=== PATIENT | male | born 1990 | race Caucasian/White ===

== ENCOUNTER 2018-08-29 20:25 | Emergency (ER) | payer SELFPAY ==
[2018-08-29 20:26] VITALS: BP 150/78; PULSE 93; RESP 16; TEMP 37; O2SAT 98; BMI 29.2
--- NOTE | 2018-08-29 20:39 | CT_ITS ---
STUDY: CT BRAIN WITHOUT CONTRAST REASON FOR EXAM: Male, 28 years old. Status post fall. Yellow fluid leaking out of the nose RADIATION DOSAGE (If Supplied By Facility): CTDIvol = ( 60.81 ) mGy, DLP = ( 1112.69 ) mGycm TECHNIQUE: Transaxial CT imaging of the brain was performed without administration of intravenous contrast material. Individualized dose optimization techniques were used for this CT. COMPARISON: No relevant priors. FINDINGS: Normal soft tissue structures. Normal calvarium. Normal size ventricles and extra-axial spaces for the patient's age. Normal white matter tracts of the cerebral hemispheres. Normal basal ganglia and thalami. Normal brainstem. Normal cerebellum. There is no intracranial hemorrhage. There are no findings of an acute ischemic infarction. Small posterior fossa arachnoid cyst Normal visualized paranasal sinuses. No definite evidence of skull base fracture. CT/Brain/Head without Contrast IMPRESSION: Normal unenhanced CT scan of the brain. No definite evidence of skull base fracture. Electronically Signed: Angus Childress DO at 21:13 EDT Tel , Service support ,
--- NOTE | 2018-08-29 22:21 | ED.VISSUMM ---
- ER Visit Summary Date of Service: 08/29/18 Chief Complaint: Head injury History of Present Illness: The patient is a 28 M who presents 2 days after head injury. He slipped in the shower and hit his forehead. He had some swelling to the area but it seems to have improved. This morning, he had some yellowish clear drainage from his left nostril. Otherwise he is doing well. No headaches. No fevers. No visual changes. No hearing changes. No other associated symptoms. He does not take blood thinners. Physical Examination: Afebrile and vital signs are unremarkable. Head and neck are grossly atraumatic. HEENT exam is unremarkable. No sign of drainage, bleeding, abscess. Skin appears normal. Test Results: CT brain unremarkable. No basal skull fracture. No bleeding. No infection noted. Emergency Department Course and Treatment: Patient presents after a mechanical slip and head injury. He had some yellowish clear fluid drained from his left nostril. His imaging was unremarkable. I think it is very unlikely that this is CSF fluid. His exam is otherwise unremarkable. He was referred to ENT for evaluation. Return right away if he has any new issues, increasing pain, fevers, confusion, or neurologic symptoms. Treatment Plan: As above Disposition: Discharge Impression: 1. Closed head injury This note was generated with [employer] dictation software. It may contain incorrect words, spelling, and punctuation that were not noted in review of the chart prior to signing ED Disposition - Plan for ED Patient: Disposition: Home or Assisted Living Instructions: ED Concussion Referrals: Delvis Velasquez MD [STAFF PHYSICIAN] -
--- NOTE | 2018-08-29 22:22 | ED.DEP ---
ED Disposition - Plan for ED Patient: Instructions: ED Concussion Referrals: Delvis Velasquez MD [STAFF PHYSICIAN] -
[2018-08-29 22:54] VITALS: RESP 16
== END 2018-08-29 22:55 | disposition home or self-care (01) ==
PROVIDERS: Emergency Provider Emergency Medicine
DX: S09.90XA Unspecified injury of head, initial encounter (principal); F17.220 Nicotine dependence, chewing tobacco, uncomplicated; W01.198A Fall on same level from slipping, tripping and stumbling with subsequent striking against other object, initial encounter; Y93.E1 Activity, personal bathing and showering; Y92.002 Bathroom of unspecified non-institutional (private) residence as the place of occurrence of the external cause; Y99.8 Other external cause status
CPT/HCPCS: 70450; 99282

== ENCOUNTER 2019-02-11 15:53 | Emergency (ER) | payer SELFPAY ==
[2019-02-11 15:53] VITALS: BP 158/95; PULSE 89; RESP 16; TEMP 36.8; O2SAT 98; BMI 31.4
--- NOTE | 2019-02-11 16:07 | ED.VIS.EYE ---
History of Present Illness Chief Complaint: Eye Problem Detail of Chief Complaint: Right eye pain Informant: Patient Location: Right Eye Onset: Today Context: - - Woke with symptoms at 1 AM Timing: Continuous Current Severity: Severe Maximum Severity: Severe Associated Symptoms - Eyes: Pain, Photophobia - Mild photophobia History of injury: No Visual correction: None Past Medical History - Allergies and Home Meds Allergies/Adverse Reactions: Allergies No Known Allergies Allergy (Verified 02/11/19 15:55) Primary Care Physician: Care Physician,No Primary [Primary Care Provider] - Prior records reviewed: Yes Past Medical History: - - Reviewed Lives: Spouse/ Significant Other Smoking Status: Never smoker Review of Systems General: Denies: Chills, Fever Eyes: Reports: - - Mild light sensitivity to the right eye with right eye pain. ENT: Denies: Bilateral ear pain Cardiovascular: Denies: Chest pain Respiratory: Denies: Dyspnea Gastrointestinal: Denies: Abdominal pain Genitourinary: Denies: Dysuria Skin: Reports: Rash - Mild erythema to the forehead and maxilla on the right. Neurological: Denies: Headache Hematologic: Denies: Easy bruising, Easy bleeding Allergy: Denies: Uticaria Physical Exam Eyelid: Normal inspection Right Conjunctiva/Sclera: Normal inspection, No erythema Left Conjunctiva/Sclera: Normal inspection, No erythema Right Cornea: Normal inspection Left Cornea: Normal inspection Anterior chamber: Normal exam, Deep and quiet Right intraocular pressure: 15 Vital Signs/Narrative: Vital Signs Temp Pulse Resp BP Pulse Ox 02/11/19 15:53 98.2 F 89 16 158/95 H 98 Inital Vital Signs reviewed: Yes Head: Normocephalic ENT: Moist mucous membranes Neck: Supple Cardiovascular: Regular rate, Regular rhythm Respiratory: No distress, CTA bilaterally Abdomen: Soft, Nontender Skin: - - Mild erythema to the right forearm head and right maxilla. This is concerning for shingles, but I do not see any vesicles at this time. Neurological: Alert, Oriented x3 Psychological: Normal affect Diagnostic/Tx/Re-eval - Treatment and Re-Evaluation Tetracaine: right eye - Medical Decision Making Tetracaine was applied to the right eye. This improved the patient's pain. Slit-lamp examination reveals no gross abnormalities. Floor seen dye is applied I do not appreciate any uptake. Intraocular pressure is measured at 15 on the right. I spoke with Dr. Loja, on-call for ophthalmology. Because the patient does not have any eye lesions at this time we will not do any eyedrops. Dr. Loja will see the patient in the office tomorrow morning to reexamine the eye. I will give him prednisone, [place], and acyclovir. Disposition: Home ED Disposition - Plan for ED Patient: Disposition: Home or Assisted Living Diagnosis: Varicella zoster Instructions: Shingles (Herpes Zoster) Prescriptions: Hydrocodone Bitart/Apap 5-325 [[place] 5MG-325MG] 1 tablet PO Q6H PRN PRN 3 Days #10 tablet PRN Reason: Pain Prednisone 10 mg PO DAILY #63 tablet Acyclovir [Zovirax] 800 mg PO 5X/DAY #35 tablet Referrals: Daniel Loja MD [STAFF PHYSICIAN] - 1 Day
[2019-02-11] MEDS: Tetracaine 0.5% Ophthalmic Bottle 1 DRP RIGHT EYE (16:36)
[2019-02-11] MEDS: Fluorescein 1 MG STRIP 1 STRIP RIGHT EYE (16:36)
[2019-02-11] MEDS: HYDROcodone Bitartrate/Apap 5/325 Tablet PO (16:54)
[2019-02-11] MEDS: predniSONE 20 MG Tablet 60 MG PO (16:55)
[2019-02-11] MEDS: Acyclovir 800 MG Tablet PO (17:05)
== END 2019-02-11 17:06 | disposition home or self-care (01) ==
PROVIDERS: Emergency Provider Emergency Medicine
DX: B02.9 Zoster without complications (principal)
CPT/HCPCS: 99283

== ENCOUNTER 2019-09-03 11:18 | Emergency (ER) | payer SELFPAY ==
[2019-09-03 11:19] VITALS: BP 144/93; PULSE 117; RESP 18; TEMP 36.9; O2SAT 97; BMI 32.3
--- NOTE | 2019-09-03 11:30 | RAD_ITS ---
STUDY: X-RAY CHEST REASON FOR EXAM: Male, 29 years old. Chest pain x 2 days TECHNIQUE: PA and lateral views of the chest. COMPARISON: Comparison is made with prior examination dated May 27, 2013. FINDINGS: EKG electrodes are seen. Mild elevation of the right hemidiaphragm. There now is evidence of a 4.7 cm x 1.7 cm nodular density in the superior right hilum. This may represent a lymph node. Correlation with a CT scan is recommended. There is no demonstrated pleural abnormality. Normal size heart. Normal visualized pulmonary arteries. Normal visualized aortic arch and descending thoracic aorta. Normal visualized thoracic spine. Normal visualized ribs, clavicles, and shoulders. There is no demonstrated abnormality of the visualized soft tissue structures of the upper abdomen. RAD/Chest PA and Lateral IMPRESSION: 4.7 cm x 1.7 cm nodule in the right superior hilum. Correlation with the CT scans recommended. Electronically Signed: Jerry Min, at 12:38 EDT , Service support ,
--- NOTE | 2019-09-03 11:30 | EKG12_ITS ---
Test Reason : CP Blood Pressure : / mmHG Vent. Rate : 102 BPM Atrial Rate : 102 BPM P-R Int : 146 ms QRS Dur : 098 ms QT Int : 350 ms P-R-T Axes : 062 071 022 degrees QTc Int : 456 ms Sinus tachycardia Otherwise normal ECG Confirmed by NÉSTOR MORAES, FANNY ([id number]), graphic editor GIL MONREAL ([id number]) on 09/08/2019 10:53:29 AM Referred By: KENY Confirmed By:MENDOZA PALM MD
--- NOTE | 2019-09-03 11:31 | ED.VIS.GEN ---
History of Present Illness Chief Complaint: Chest Pain Narrative: This patient is a 29-year-old male who presents with chest pain. This is been present for about 2 days. He complains of sharp right-sided chest pain radiating to the center of his chest. He complains of feeling slightly short of breath. He feels like he cannot get a full or deep breath and his pain is worse with inspiration. He denies any pain or swelling in the legs. No recent travel immobilization or surgery. He has no history of DVT or pulmonary embolism. He has no history of coagulopathy. He does have a prior history of pericarditis. He notes some cough however this is chronic and unchanged from baseline. He is a former smoker. He notes that his cough is sometimes productive in the mornings. No fever congestion rhinorrhea. No nausea vomiting or diarrhea. Past Medical History - Allergies and Home Meds Allergies/Adverse Reactions: Allergies No Known Allergies Allergy (Verified 09/03/19 11:20) Primary Care Physician: Care Physician,No Primary [Primary Care Provider] - Past Medical History: - - History of teratoma, pericarditis Smoking Status: Never smoker Review of Systems All systems negative except as indicated General: Denies: Fever Eyes: Denies: Visual changes - bilaterally ENT: Denies: Bilateral ear pain Cardiovascular: Reports: Chest pain Respiratory: Reports: Dyspnea, Cough, Sputum Gastrointestinal: Denies: Abdominal pain, Nausea, Vomiting, Diarrhea Musculoskeletal: Denies: Myalgias, Arthralgias Skin: Denies: Rash Neurological: Denies: Headache Hematologic: Denies: Easy bruising, Easy bleeding Allergy: Denies: Uticaria Physical Exam Vital Signs/Narrative: Vital Signs Temp Pulse Resp BP Pulse Ox 09/03/19 11:19 98.4 F 117 H 18 144/93 H 97 Inital Vital Signs reviewed: Yes General: Well nourished Head: Normocephalic Eyes: EOMI ENT: Moist mucous membranes Neck: Supple Cardiovascular: - - Heart is regular tachycardia without murmur, gallop, rub Respiratory: No distress, CTA bilaterally. Negative for: Rales, Rhonchi, Wheezing Abdomen: Soft, Nontender, Nondistended Extremities: Nontender, No edema Skin: Normal color Neurological: Alert Psychological: Normal affect Diagnostic/Tx/Re-eval Impressions Chest X-Ray 09/03/19 11:30 IMPRESSION: 4.7 cm x 1.7 cm nodule in the right superior hilum. Correlation with the CT scans recommended. Electronically Signed: Jerry Min, at 12:38 EDT , Service support , Chest CT 09/03/19 12:50 IMPRESSION: 5.8 cm x 6 cm x 8.2 cm hypodense heterogeneous mass in the anterior mediastinum on the right side extending into the right suprahilar region. This abuts the right cardiac border with adjacent pericardial thickening. Recurrent teratoma should be ruled out. Electronically Signed: Jerry Min, at 13:16 EDT , Service support , 09/03/19 11:30 Chest PA and Lateral [RAD] Stat 09/03/19 12:50 CT Chest [Chest WITH Contrast] [CT] Stat Laboratory Results 09/03/19 09/03/19 09/03/19 11:35 11:35 11:35 WBC 10.9 RBC 5.42 Hgb 17.7 H Hct 51.8 MCV 95.6 H MCH 32.7 H MCHC 34.2 RDW Std Deviation 43.2 RDW Coeff of Flynn 12.5 Plt Count 242 MPV 9.2 Immature Gran % (Auto) 0.500 Neut % (Auto) 72.4 H Lymph % (Auto) 16.4 L [place] % (Auto) 9.0 Eos % (Auto) 1.3 Baso % (Auto) 0.4 Absolute Neuts (auto) 7.9 H Absolute Lymphs (auto) 1.78 Nucleated RBC % 0 D-Dimer Quant (PE/DVT) <= 0.27 Sodium 136 Potassium 3.7 Chloride 104 Carbon Dioxide 26.0 Anion Gap 6 BUN 9 Creatinine 0.99 Estim Creat Clear Calc 119.37 Est GFR (MDRD) Af Amer 117 Est GFR (MDRD) Non-Af 96 BUN/Creatinine Ratio 9.1 L Glucose 93 Calcium 9.2 Troponin I < 0.015 - Medical Decision Making EKG shows sinus tachycardia at a rate of 102. Laboratory studies including d-dimer and troponin are normal. Chest x-ray showed a hilar nodule and CT was recommended. 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 I spoke to Dr. Siu who is on-call for oncology and can have the patient follow-up in the office for further evaluation, he will likely need biopsy. Patient understands to return for new recurrent or worsening symptoms and otherwise to follow-up as an outpatient. ED Disposition - Plan for ED Patient: Disposition: Home or Assisted Living Diagnosis: Mediastinal mass Referrals: Care Physician,No Primary [Primary Care Provider] - Additional Instructions: Your CAT scan showed an abnormal mass in the chest. 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 You need to follow-up with the oncologist in the office for further evaluation. If you develop new or worsening symptoms you should return to the emergency department for reevaluation.
[2019-09-03 11:43] LABS: Absolute Lymphocyte Count 1.78 X10^3/uL (0.83-4.51); Absolute Neutrophil Count 7.9 X10^3/uL (2.0-7.7); Basophil# 0.04 X10^3/uL; Basophil% 0.4 % (0-1); Eosinophil# 0.14 X10^3/uL; Eosinophils% 1.3 % (0-5); Hematocrit 51.8 % (40-54); Hemoglobin 17.7 g/dL (13.0-16.5); Lymphocyte # 1.78 X10^3/ul (4.0); Lymphocyte % 16.4 % (19-41); Mean Corp Hgb Conc 34.2 g/dL (32-36); Mean Corpuscular Hgb 32.7 pg (27.0-32.0); Mean Corpuscular Volume 95.6 fL (80-94); Mean Platelet Vol. 9.2 fl (6.2-12.0); Monocyte# 0.98 X10^3/uL; NRBC Flagged by Analyzer 0 % (0-5); Neutrophil # 7.89 X10^3/uL (2.7-7.7); Neutrophil % 72.4 % (47-70); Platelet Count 242 K/mm3 (150-450); RBC Distribution Width CV 12.5 % (11.6-14.6); RBC Distribution Width SD 43.2 fl (35.1-43.9); Red Blood Count 5.42 M/mm3 (4.6-6.2); White Blood Count 10.9 K/mm3 (4.4-11.0)
[2019-09-03 11:48] VITALS: PULSE 86; RESP 20; O2SAT 97
[2019-09-03 12:03] LABS: D-Dimer Quantitative (DVT/PE) <= 0.27 FEU/ug/m (0.27-0.49)
[2019-09-03 12:05] LABS: Anion Gap 6 (5-15); BUN 9 mg/dL (7-18); BUN/Creat Ratio 9.1 RATIO (10-20); Calcium,Total 9.2 mg/dL (8.5-10.1); Chloride 104 mmol/L (98-107); Creatinine, Serum 0.99 mg/dL (0.70-1.30); EST Glomerular Filtration Rate 96 mL/min (>60); Est Glom Filt Rate - Afr Amer 117 mL/min (>60); Estimated Creatinine Clearance 119.37 ml/min; Glucose 93 mg/dL (74-106); Potassium 3.7 mmol/L (3.5-5.1); Sodium Level 136 mmol/L (136-145)
--- NOTE | 2019-09-03 12:50 | CT_ITS ---
STUDY: CT CHEST WITH CONTRAST REASON FOR EXAM: Male, 29 years old. HILAR NODULE, CP X 2 DAYS, TERATOMA REMOVED FROM HEART AT 14, DIAGNOSED WITH PERICARDITIS AT 16 RADIATION DOSAGE (If Supplied By Facility): CTDIvol = ( 14.94 ) mGy, DLP = ( 603.33 ) mGycm TECHNIQUE: Transaxial imaging was performed following intravenous administration of IV 100mL Isovue-300. Individualized dose optimization techniques were used for this CT. COMPARISON: Comparison is made with prior chest radiograph done earlier in the day. FINDINGS: Minimal increase markings are seen in the superior segment of the right lower lobe. This may represent atelectasis. There is no demonstrated pleural abnormality. Mild degree of pericardial thickening at the level of the adjacent mass lesion. There is evidence of a 5.8 cm x 6 cm x 8.2 cm hypodense heterogeneous mass in the anterior mediastinum on the right side extending inferiorly into the right suprahilar region. This abuts the right cardiac border and right atrium. With the patient''s history of prior resection of a teratoma, recurrent teratoma should be ruled out.. Normal hilar regions. Normal enhanced pulmonary arteries. Normal aorta arch and descending thoracic aorta. Normal osseous structures. There is no demonstrated abnormality of the visualized upper abdomen. CT/Chest WITH Contrast IMPRESSION: 5.8 cm x 6 cm x 8.2 cm hypodense heterogeneous mass in the anterior mediastinum on the right side extending into the right suprahilar region. This abuts the right cardiac border with adjacent pericardial thickening. Recurrent teratoma should be ruled out. Electronically Signed: Jerry Min, at 13:16 EDT , Service support ,
[2019-09-03 13:27] VITALS: BP 153/94; PULSE 82; RESP 16; O2SAT 97
--- NOTE | 2019-09-03 13:35 | ED.DEP ---
ED Disposition - Plan for ED Patient: Disposition: Home or Assisted Living Diagnosis: Mediastinal mass Referrals: Care Physician,No Primary [Primary Care Provider] - Sarthak Gamez MD [STAFF PHYSICIAN] - Additional Instructions: Your CAT scan showed an abnormal mass in the chest. 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 You need to follow-up with the oncologist in the office for further evaluation. If you develop new or worsening symptoms you should return to the emergency department for reevaluation.
[2019-09-03 13:42] VITALS: BP 153/94; PULSE 83; RESP 16; O2SAT 98
== END 2019-09-03 13:43 | disposition home or self-care (01) ==
PROVIDERS: Emergency Provider Emergency Medicine
DX: R22.2 Localized swelling, mass and lump, trunk (principal); Z87.891 Personal history of nicotine dependence
CPT/HCPCS: 71046; 71260; 80048; 84484; 85025; 85379; 93005; 99284; J7030; Q9967

== ENCOUNTER → 2019-09-11 08:07 | Outpatient (CLI) | payer MEDICAID, SELFPAY ==
[2019-09-05 10:15] VITALS: BMI 30.9
[2019-09-11] VITALS (13 sets, daily range): BP systolic 128–169; BP diastolic 40–115; PULSE 67–134; RESP 11–28; TEMP 36.9; O2SAT 95–100; BMI 32.1
--- NOTE | 2019-09-11 | ASPIGT_PTH ---
PATIENT: KI ANAND LOC: CT U#:[id number] AGE/SX: 35/M ROOM: RE09/11/[address]: Dr. Wilber Gillespie MD : 1990 BED: DIS: SPEC #: [id number] RECD: 09/11/19 11:00 STATUS: RAFAELA JAMIL #: [id number] CHRISTEL: 09/11/19 00:[address]: Wilber Gillespie DEPT: SURGICAL PATHOLOGY RECD BY: Ulices Retana ENTERED: 09/11/19 11:00 SP TYPE: ASP RAD OT DR: No Primary Care Phys Tissues: Mediastinal pleura Procedures: FNA Specimen Adequacy Special Stain Group II Surgery Specimen Level IV Imprint (control) HEADER OPERATION: CT-guided right mediastinal biopsy PRE-OP DIAGNOSIS: Mediastinal mass TISSUE SUBMITTED: Right mediastinum FNA and 20 gauge core x5 MICROSCOPIC DIAGNOSIS Right mediastinal mass, CT-guided core biopsy and FNA (cytospin, cell block and smears): Paucicellular specimen. A minute fragment of cartilage, hyalinized and collagenized tissue, benign epithelial cells and macrophages are noted. See comment. BILLY:iram 09/12/19 COMMENT The specimen is evaluated at the time of FNA by Dr. Davis. Immediate Evaluation = Negative for malignant cells. The specimen is insufficient for further evaluation. Correlation with clinical, radiologic findings and appropriate follow up are necessary. Case has been reviewed in consultation with Dr. Lee who concurs with the above diagnosis. IDC:AM MICROSCOPIC DESCRIPTION Slides are reviewed. GROSS DESCRIPTION Received in fixative is one container labeled with the patient's name and designated right mediastinum. The specimen consists of a scant amount of soft tissue. The specimen is totally submitted for cell block preparation. Five touch imprints are prepared at the time of core biopsy. / BILLY:iram 09/11/19 TC: Cannot code CPT: 70742, 15724, 20141
--- NOTE | 2019-09-11 08:08 | CT_ITS ---
PROCEDURE: CT GUIDED biopsy of the anterior mediastinal mass. DATE: September 11, 2019 INDICATION: Male, 29 years old. Anterior mediastinal mass. PHYSICIAN: Jerry Min M.D. RADIATION DOSAGE (If Supplied By Facility): CTDIvol = ( 21 ) mGy, DLP = ( 505.88 ) mGycm. Individualized dose optimization techniques were utilized. PROCEDURE: The risks, benefits, and alternatives to the procedure were explained to the patient. The specific risk of pneumothorax and hemorrhage requiring further treatment or intervention was detailed and accepted. Follow-up instructions were discussed with the patient as well. Written informed consent was obtained. The patient was brought into the CT suite and placed in the supine position. . An appropriate entry site was identified. The overlying skin was prepped and draped in the usual sterile fashion. 1% lidocaine was administered subcutaneously for local anesthesia. Conscious sedation was performed. Conscious sedation was started at 9:21 AM and submitted 9:39 AM. The patient received 3 mg of Versed and 75 mcg of fentanyl intravenously. The patient was independently monitored by the department nurse. Under CT guidance, a total of 5 passes were performed utilizing a 20-gauge core biopsy needle. The specimens were then placed in the appropriate fluid and transported to the laboratory for analysis. Hemostasis was obtained. The patient tolerated the procedure well without immediate complications. CT/Biopsy/Inj or Needle Placement IMPRESSION: Successful CT guided biopsy of the anterior mediastinal mass, as described above. Conscious sedation protocol was followed. Electronically Signed: Jerry Min, at 10:23 EDT , Service support ,
[2019-09-11 08:22] LABS: Absolute Lymphocyte Count 1.57 X10^3/uL (0.83-4.51); Absolute Neutrophil Count 4.8 X10^3/uL (2.0-7.7); Basophil# 0.03 X10^3/uL; Basophil% 0.4 % (0-1); Eosinophils% 1.4 % (0-5); Hemoglobin 17.4 g/dL (13.0-16.5); Lymphocyte # 1.57 X10^3/ul (4.0); Lymphocyte % 21.4 % (19-41); Mean Corp Hgb Conc 35.5 g/dL (32-36); Mean Corpuscular Hgb 34.5 pg (27.0-32.0); Mean Platelet Vol. 8.7 fl (6.2-12.0); Monocyte# 0.77 X10^3/uL; Monocyte% 10.5 % (0-10); NRBC Flagged by Analyzer 0 % (0-5); Neutrophil % 65.5 % (47-70); Platelet Count 260 K/mm3 (150-450); RBC Distribution Width CV 12.8 % (11.6-14.6); RBC Distribution Width SD 44.1 fl (35.1-43.9); Red Blood Count 5.05 M/mm3 (4.6-6.2); White Blood Count 7.3 K/mm3 (4.4-11.0)
[2019-09-11] MEDS: Midazolam 2 MG/2 ML Syringe IV ×2 (09:21→09:33)
[2019-09-11] MEDS: fentaNYL 100 MCG/2 ML Ampul IV ×2 (09:22→09:35)
[2019-09-11 09:39] LABS: Partial Thromboplast Time 35.6 Seconds (24.1-36.2); Prothrombin Time (Protime)PT. 12.8 SECONDS (11.7-14.9)
--- NOTE | 2019-09-11 09:50 | RAD_ITS ---
STUDY: X-RAY CHEST REASON FOR EXAM: Male, 29 years old. Immediately post lung biopsy TECHNIQUE: AP inspiration and expiration views COMPARISON: Comparison is made with prior study dated September 03, 2019. FINDINGS: The patient is status post anterior mediastinal biopsy. There is no evidence of pneumothorax. The lungs are clear and expanded. There is no demonstrated pleural abnormality. Normal size heart. Stable prominence of the right suprahilar region. Normal visualized pulmonary arteries. Normal visualized aortic arch and descending thoracic aorta. Normal visualized thoracic spine. Normal visualized ribs, clavicles, and shoulders. There is no demonstrated abnormality of the visualized soft tissue structures of the upper abdomen. RAD/Chest Insp/Exp 2 View IMPRESSION: Status post biopsy of the anterior mediastinum. There is no evidence of pneumothorax. Electronically Signed: Jerry Min, at 10:19 EDT , Service support ,
--- NOTE | 2019-09-11 11:15 | RAD_ITS ---
STUDY: X-RAY CHEST REASON FOR EXAM: Male, 29 years old. 2 hour post lung biopsy TECHNIQUE: AP inspiration and expiration views. COMPARISON: Comparison is made with prior study done earlier today. FINDINGS: There is no evidence of pneumothorax on the delayed images. RAD/Chest Insp/Exp 2 View IMPRESSION: No evidence of pneumothorax. Electronically Signed: Jerry Min, at 12:38 EDT , Service support ,
== END ==
PROVIDERS: Referring Provider Internal Medicine Medical Oncology; Visit Provider Internal Medicine Medical Oncology
DX: J98.59 Other diseases of mediastinum, not elsewhere classified (principal)
CPT/HCPCS: 32405; 36415; 71046; 77012; 85025; 85610; 85730; 88172; 88305; 88313; 99153; 99156; 99157; J7040; A4216

== ENCOUNTER 2020-02-24 19:00 | Emergency (ER) | payer MEDICAID, SELFPAY ==
[2019-10-02 11:10] VITALS: BMI 30.7
[2020-02-24 19:01] VITALS: BP 154/84; PULSE 95; RESP 16; TEMP 36.2; O2SAT 97; BMI 32.8
--- NOTE | 2020-02-24 19:22 | ED.VIS.GEN ---
History of Present Illness Chief Complaint: Upper Extremity Injury Informant: Patient Narrative: 29-year-old male with no significant past medical history presents with right wrist pain. States this is been worsening over the past 1 week. Patient was recently off of work for approximately 1 month. 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 States that he began having pain in his right wrist. Worse with movement. Sharp in nature. Denies any trauma. Denies any numbness or tingling. Past Medical History - Allergies and Home Meds Allergies/Adverse Reactions: Allergies No Known Allergies Allergy (Verified 02/24/20 19:04) Primary Care Physician: Care Physician,No Primary [Primary Care Provider] - Past Medical History: None Surgical History: no surgical history Lives: Spouse/ Significant Other Smoking Status: Current every day smoker Alcohol: None Drugs: None Review of Systems General: Denies: Chills, Fever, Sweats Eyes: Denies: Visual changes - bilaterally, Diplopia ENT: Denies: Rhinorrhea, Sore throat Cardiovascular: Denies: Chest pain, Palpitations Respiratory: Denies: Dyspnea, Cough, Dyspnea on exertion Gastrointestinal: Denies: Abdominal pain, Nausea, Vomiting, Diarrhea, Melena, Hematochezia Genitourinary: Denies: Dysuria, Hematuria, Frequency Musculoskeletal: Reports: Arthralgias. Denies: Back pain, Extremity Pain Skin: Denies: Rash, Wounds Neurological: Denies: Headache, Weakness, Numbness Physical Exam Vital Signs/Narrative: Vital Signs Temp Pulse Resp BP Pulse Ox 02/24/20 19:01 97.1 F L 95 16 154/84 H 97 Inital Vital Signs reviewed: Yes General: Well nourished, Well developed, No Acute Distress Head: Normocephalic, Atraumatic Eyes: Perrl, EOMI ENT: Moist mucous membranes, No rhinorrhea Neck: Supple, Nontender Cardiovascular: Regular rate, Regular rhythm, No murmurs Respiratory: No distress, CTA bilaterally, Chest nontender Abdomen: Soft, Nontender, Nondistended, Normal bowel sounds Back: Nontender, Normal Inspection Extremities: No edema, - - Pain in the right distal forearm on extension of the wrist as well as ulnar deviation. No significant tenderness to bony palpation. Skin: Normal color, No rash Neurological: Alert, Oriented x3, Cranial nerves II-XII grossly intact, Normal Strength, Normal Sensation Psychological: Normal affect, Normal Mood Diagnostic/Tx/Re-eval - Medical Decision Making Appears well nontoxic. Vital signs within normal limits. Patient will be given intramuscular Toradol and Kenalog. Patient will be given Naprosyn for home. Patient also be given wrist splint. Asked to follow-up with primary care. Discharged home in stable condition. Impression: 1. Right wrist tendinitis ED Disposition - Plan for ED Patient: Disposition: Home or Assisted Living Instructions: ED Sprain Wrist Prescriptions: Naproxen [Naprosyn] 500 mg PO BID #14 tab Prescription Printed Referrals: Daniel Duran MD [NON-STAFF] - 2 Days
[2020-02-24] MEDS: Triamcinolone Acetonide 40 MG/ML Vial IM (19:24)
[2020-02-24] MEDS: Ketorolac 15 MG/ML Vial IM (19:24)
== END 2020-02-24 19:36 | disposition home or self-care (01) ==
LOC: ED 19:32
PROVIDERS: Emergency Provider Emergency Medicine
DX: M77.8 Other enthesopathies, not elsewhere classified (principal); F17.200 Nicotine dependence, unspecified, uncomplicated
CPT/HCPCS: 96372; 99281

== ENCOUNTER 2023-02-26 09:52 | Emergency (ER) | payer MEDICAID, SELFPAY ==
[2023-02-26 09:53] VITALS: BP 159/105; PULSE 73; RESP 16; TEMP 36.6; O2SAT 100; BMI 34.8
--- NOTE | 2023-02-26 10:02 | EX.ED.DYSGE1 ---
HPI History of Present Illness Chief Complaint: Chest Pain Informant: patient Onset/Context/Timing Onset: Weeks (1.5) Context: Sudden Onset Timing: Continuous Quality: Sharp Location: Right lower ribs Worsened by: Nothing Relieved by: Nothing Narrative Narrative: Patient presents with right lower rib pain that has been getting worse over the past 1-1/2 weeks. Patient denies any trauma or injury. Patient admits to a cough but denies any sputum production. Patient denies any fevers or chills. Patient describes his pain as sharp. Patient states it is over the right lower rib area. Patient states nothing makes it worse and nothing makes it better. Patient denies any shortness of breath. Patient denies any abdominal pain. Patient denies any palpitations. [facility] Medical History excision of teratoma Teratoma Home Medications naproxen 500 mg tablet 500 mg PO BID PRN PRN pain #20 tabs 02/26/23 [Rx Last Taken Unknown] Allergy/AdvReac Type Severity Reaction Status Date / Time No Known Allergies Allergy Verified 02/26/23 09:54 Family History Aunt Breast cancer Grandmother No problems noted. Mother No problems noted. Grandfather Heart disease Surgical History History of biopsy Social History (Updated 02/26/23 @ 10:[address] Delvis Reed DO) Smoking Status: Current every day smoker tobacco type: cigarettes substance use type: marijuana ROS ROS ED Constitutional Constitutional ED: Denies chills or fever(s) Eyes Eyes: Denies blurry vision or change in vision ENT ENT ED: Denies rhinorrhea or sore throat Cardiovascular Cardiovascular: Reports chest pain; Denies palpitations Respiratory/Chest Respiratory/Chest: Reports cough; Denies dyspnea Gastrointestinal Gastrointestinal: Reports nausea; Denies vomiting Genitourinary Genitourinary ED: Denies dysuria or hematuria Musculoskeletal Musculoskeletal: Denies back pain or neck pain Integumentary Denies abscess or rash Neurologic Neurologic: Denies headache(s) or weakness Allergic/Immunologic Allergic/Immunologic ED: Denies mouth swelling or urticaria EXAM Physical Exam Const Vital Signs: 02/26/23 09:53 02/26/23 09:53 Temperature 97.8 F Temperature Source Temporal Pulse Rate 73 Respiratory Rate 16 Respiratory Effort Normal Blood Pressure 159/105 H Blood Pressure Mean 123 Pulse Ox 100 Oxygen Delivery Method Room Air Positive well nourished, well developed and obese General Appearance ED: well developed and NAD Nutritional Appearance: obese HEENT Reports moist mucous membranes Neck supple and no JVD Chest Wall inspection of chest normal Chest Narrative: There is mild tenderness over the right lower ribs. There is no edema or ecchymosis. There is no bony crepitance or step-off noted. Resp normal respiratory effort and clear to auscultation bilaterally Cardio regular rate and regular rhythm GI non-tender and non-distended; Negative for hepatosplenomegaly Palpation: soft Extremity normal to inspection Neuro oriented x3, CN's II-XII intact bilaterally and no sensory deficits noted Sensorium / Orientation: alert Motor Exam: strength 5/5 throughout Psych mental status grossly normal Skin no rashes or lesions noted, no wounds and skin turgor normal MDM MDM MDM Narrative Medical decision making narrative: Differential diagnosis includes occult rib fracture, intercostal strain, pleurisy, pneumonia, and pneumothorax. X-rays of the right ribs will be obtained to assess for rib fracture, pneumonia, and pneumothorax. History & Record Review Discussion w/independent historian: Patient and Family Radiography Diagnostic Testing: Clinical Impression(s) from Imaging Studies Ribs w/Chest X-Ray 02/26/23 10:15 IMPRESSION: RIBS: Normal x-ray examination of the right ribs. CHEST: Normal x-ray examination of the chest. Electronically Signed: Vito Farris MD at 10:49 EDT , X-rays of the right ribs were obtained. There are 5 views. On my independent interpretation, there is no acute fracture. There is no pneumothorax noted. There is no pleural effusion. There is no acute cardiopulmonary process noted. Radiologist also interpreted the x-rays and agrees. Treatment and Re-Evaluation :: Patient was advised of his findings. Patient was advised that this could be pleurisy or muscular strain. Patient was given a prescription for Naprosyn. Patient was instructed to take 10-15 deep breaths every hour while awake to prevent atelectasis and pneumonia. Patient was instructed to follow-up with his primary care physician in 5 to 7 days. Patient understood and was agreeable with the plan. All questions were answered. Discharge Plan Triage Chief Complaint: Chest Pain ED Provider: Delvis Reed Dx/Rx/DC Orders Clinical Impression: Strain of chest wall Instructions: ED Chest Wall Strain Prescriptions: Changed naproxen 500 MG tablet 500 mg PO BID PRN PRN (Reason: pain) Qty: 20 0RF Primary Care Provider: Care Physician,No Primary Referrals: Nicolette Fragoso MD [Med Staff - Mechanical Research Engineer] - 5-7 Days Care Physician,No Primary [Primary Care Provider] - Disposition Disposition: Home, Self Care
--- NOTE | 2023-02-26 10:15 | RAD_ITS ---
STUDY: X-RAY - UNILATERAL RIBS ( RIGHT ) WITH CHEST REASON FOR EXAM: Male, 32 years old. Pain. TECHNIQUE - RIBS: 4 views of the right ribs. TECHNIQUE - CHEST: Single PA view of the chest. COMPARISON: None. FINDINGS - RIBS: Normal visualized right ribs without a demonstrated fracture. FINDINGS - CHEST: The lungs are clear and expanded. There is no demonstrated pleural abnormality. Normal size heart. Normal mediastinum and everette. Normal visualized pulmonary arteries. Normal visualized aortic arch and descending thoracic aorta. Normal visualized thoracic spine. Normal visualized ribs, clavicles, and shoulders. There is no demonstrated abnormality of the visualized soft tissue structures of the upper abdomen. RAD/Ribs Uni Min 3V w/PA Chest IMPRESSION: RIBS: Normal x-ray examination of the right ribs. CHEST: Normal x-ray examination of the chest. Electronically Signed: Vito Farris MD at 10:49 EDT ,
--- NOTE | 2023-02-26 11:05 | CM.ED ---
Social Work Note Referral Source: case find Referral Reason: no PCP SW met with patient and introduced herself and role as [facility] Resident Intern. Patient lying on hospital bed and agreeable to speak with SW with patient's present. SW inquired about patient's insurance and current PCP. Patient verified insurance and reports no current PCP. SW provided patient with a list of local PCPs in network with patient's insurance and accepting new patients. Patient was receptive towards list and voiced no other needs. SW remains available if needs arise. Patricia Qureshi [employer], BILL
[2023-02-26 11:44] VITALS: BP 129/76; PULSE 64; RESP 14; TEMP 36.4; O2SAT 99
== END 2023-02-26 11:45 | disposition home or self-care (01) ==
PROVIDERS: Emergency Provider Emergency Medicine; Visit Provider Emergency Medicine
DX: S29.011A Strain of muscle and tendon of front wall of thorax, initial encounter (principal); F17.210 Nicotine dependence, cigarettes, uncomplicated; F12.90 Cannabis use, unspecified, uncomplicated; X58.XXXA Exposure to other specified factors, initial encounter
CPT/HCPCS: 71101; 99283; A4216

== ENCOUNTER 2024-03-05 21:22 | Inpatient (IN) | payer MEDICAID, SELFPAY ==
[2024-03-05 21:23] VITALS: BP 170/93; PULSE 100; RESP 18; TEMP 35.6; O2SAT 99; BMI 34.9
--- NOTE | 2024-03-05 21:28 | EDS_ITS ---
HPI History of Present Illness Chief Complaint: Wound [facility] Medical History excision of teratoma Teratoma Home Medications ?Medication ?Instructions ?Recorded ?Last Taken ?Type NK 03/05/24 Unknown History Allergy/AdvReac Type Severity Reaction Status Date / Time No Known Allergies Allergy Verified 03/05/24 21:23 Family History Aunt Breast cancer Grandmother No problems noted. Mother No problems noted. Grandfather Heart disease Surgical History History of biopsy Social History (Updated 02/26/23 @ 10:[address] Delvis Reed, ) Smoking Status: Current every day smoker tobacco type: cigarettes substance use type: marijuana EXAM Physical Exam Const Vital Signs: 03/05/24 21:23 Temperature 96.1 F L Temperature Source Temporal Pulse Rate 100 Respiratory Rate 18 Blood Pressure 170/93 H Blood Pressure Mean 118 Pulse Ox 99 Oxygen Delivery Method Room Air MDM MDM MDM Narrative Medical decision making narrative: HISTORY OF PRESENT ILLNESS: 33 M [id number] here with finger wound. The pt states 1 month ago his dog bit his right third digit. Notes since then he had pain. He notes and over the last several days has had warmth redness and increasing pain he is concerned he may be infected. Notes today he hurt his finger while working as a [employer]. REVIEW OF SYSTEMS: Pertinent positives: finger wound Pertinent negatives: Fever, vomiting PHYSICAL EXAM: Nursing triage notes reviewed, Vital signs reviewed Constitutional: please see mdm Extremities: intact tendinous involvement Neuro: Intact 5/5 strength with ok sign (median), intact finger abduction (ulnar) intact wrist extension (radial n). Intact sensation in the radial, ulnar, and median nerve distributions. Skin: Erythema and slight fluctuance noted just proximal to the of the right third digit nailbed. The finger is not held in flexion, there is no fusiform swelling, there is no pain with palpation of the flexor tendon. MEDICAL DECISION MAKING: Chief Complaint: Finger wound External records reviewed: Reviewed prior imaging studies Factors affecting care: none Social determinants of health: none History obtained from others: none Consults: none MDM Narrative: Patient was hemodynamically stable, afebrile and nontoxic-appearing. Right ext remity is neurovascularly intact. No signs of flexor tenosynovitis. I considered the following differential diagnosis: Osteomyelitis, finger fracture, paronychia, felon, flexor tenosynovitis Initial clincal exam most consistent with paronychia. I performed a digital block using a 25-gauge needle, 10 cc syringe and 2% lidocaine without epinephrine. Finger was cleansed with topical chlorhexidine. Lidocaine without epinephrine was injected into the proximal base of the finger both medial and lateral sides. Patient achieved complete anesthesia. Over the treated paronychia I placed an 18-gauge needle with the bevel up into the space just between the nail and the cuticle. After this was done return approximate 1 cc of bloody/purulent drainage was noted. As I was performing drainage patient mentioned that he did have additional trauma today which prompted an x-ray. X-ray of the finger was obtained primarily to rule out finger fracture or signs of osteomyelitis. ALL IMAGES (IF OBTAINED) HAVE BEEN PERSONALLY REVIEWED AND INTERPRETED BY MYSELF. X-ray of the right fingers were read reviewed person myself and showed concern for osteomyelitis. Radiologist agrees my interpretation. Given concern for osteomyelitis patient received broad-spectrum antibiotics, basic labs. Will be admitted to medicine under Dr. Mena excepted the patient's case to [facility] full admission. The patient and/or family, caregivers express understanding. The patient and/or family, caregivers agrees with the plan. Shared decision making: I will have a discussion with the patient and or visitors regarding risk/benefits of further testing or admission. They will be made aware of of the risk/benefits inherent in this decision they will be given the opportunity to voice understanding. Total critical care time today provided was at least 0 minutes. This excludes separately billable procedures. Critical care time (if documented) is secondary to the patient having high probability of clinically significant/life threatening deterioration in the patient's condition which required my urgent intervention. Impression: 1. Acute finger pain 2. Paronychia 3. Right third Distal phalanx osteomyelitis Dispo: admit This note was generated with [employer] dictation software. It may contain incorrect words, spelling, and punctuation that were not noted in review of the chart prior to signing. Radiography Diagnostic Testing: Clinical Impression(s) from Imaging Studies Finger X-Ray 03/05/24 22:10 IMPRESSION: Findings suspicious for acute osteomyelitis involving the distal phalangeal tuft. Tiny possible foreign body in the dorsal soft tissues. Electronically Signed: Megan Mitchell MD at 22:41 EDT , Discharge Plan Triage Chief Complaint: Wound ED Provider: Reece Smith Dx/Rx/DC Orders Clinical Impression: Paronychia Prescriptions: No Action NK Primary Care Provider: Care Physician,No Primary Referrals: Tyron Lockhart MD [Med Staff - Active Staff] - Care Physician,No Primary [Primary Care Provider] - Activity Restrictions/Additional Instructions: Thank you for trusting us with your care today! Please take Tylenol (2 pills, 650 mg), ibuprofen (2 pills, 400 mg) every 6 hours as needed for pain and fever control. Please antibiotics as prescribed until course complete Please return to the emergency department if your symptoms change or worsen. Please follow with your primary care physician for further outpatient evaluation and management. Print Language: Dutch
[2024-03-05] MEDS: Smz/Tmp Ds Tablet 1 TABLET PO (21:40)
[2024-03-05] MEDS: Lidocaine 2% (20 ml mdv) 20 ML Vial 5 ML INFILT (21:46)
--- NOTE | 2024-03-05 22:10 | RAD_ITS ---
INDICATION: pain in distal right 3rd digit PT WITH PAIN AND SWELLING TO RIGHT MIDDLE FINGER. BIT BY DOG APPROX ONE MONTH AGO EXAMINATION/TECHNIQUE: X-RAY - RIGHT HAND XR Fingers Min 2 Views 3 VIEWS COMPARISON: Prior study dated: Right hand x-ray 08/06/2015 FINDINGS: BONES: There is subtle osteopenia of the distal phalangeal tuft with indistinct cortical margins at the tip. No fracture demonstrated. JOINTS: No dislocation. SOFT TISSUES: Diffuse soft tissue swelling most pronounced overlying the distal digit. There is a tiny 2 mm opaque density in the soft tissues dorsally overlying the distal phalanx, base of the nailbed possible foreign body.. RAD/Finger(s) Min 2 Views IMPRESSION: Findings suspicious for acute osteomyelitis involving the distal phalangeal tuft. Tiny possible foreign body in the dorsal soft tissues. Electronically Signed: Megan Mitchell MD at 22:41 EDT ,
[2024-03-05 23:04] LABS: Absolute Lymphocyte Count 2.32 X10^3/uL (0.83-4.51); Absolute Neutrophil Count 5.4 X10^3/uL (2.0-7.7); Basophil# 0.04 X10^3/uL; Basophil% 0.5 % (0-1); Eosinophils% 1.2 % (0-5); Hematocrit 46.3 % (40-54); Hemoglobin 16.2 g/dL (13.0-16.5); Lymphocyte # 2.32 X10^3/ul (0.83-4.51); Lymphocyte % 27.1 % (19-41); Mean Corpuscular Hgb 34.3 pg (27.0-32.0); Mean Corpuscular Volume 98.1 fL (80-94); Mean Platelet Vol. 8.8 fl (6.2-12.0); Monocyte# 0.63 X10^3/uL; Monocyte% 7.4 % (0-10); NRBC Flagged by Analyzer 0 % (0-5); Neutrophil # 5.44 X10^3/uL (2.7-7.7); Neutrophil % 63.6 % (47-70); Platelet Count 271 K/mm3 (150-450); RBC Distribution Width CV 12.1 % (11.6-14.6); Red Blood Count 4.72 M/mm3 (4.6-6.2); White Blood Count 8.6 K/mm3 (4.4-11.0)
[2024-03-05] MEDS: Morphine 4 MG/ML Syringe IV (23:08)
[2024-03-05] MEDS: Ketorolac 15 MG/ML Vial IV (23:08)
[2024-03-05] MEDS: Piperacil/Tazobactam 3.375 GM in 0.9% Normal Saline (50mL MB+) 50 ML IV (23:09)
[2024-03-05 23:16] VITALS: BP 153/98; PULSE 87; RESP 16; TEMP 37.1; O2SAT 97
[2024-03-05 23:17] LABS: Anion Gap 10 (5-15); BUN 10 mg/dL (7-18); Calcium,Total 9.1 mg/dL (8.5-10.1); Chloride 108 mmol/L (98-107); Creatinine, Serum 0.91 mg/dL (0.70-1.30); EST Glomerular Filtration Rate 103 mL/min (>60); Est Glom Filt Rate - Afr Amer 125 mL/min (>60); Estimated Creatinine Clearance 150.92 ml/min; Glucose 102 mg/dL (74-106); Potassium 3.8 mmol/L (3.5-5.1); Sodium Level 140 mmol/L (136-145)
--- NOTE | 2024-03-05 23:22 | HP.PCM.HOS_ITS ---
[facility] - General General Date of Admission: 03/05/24 Date of Service: 03/05/24 Chief Complaint: Finger Wound of the Right Third Digit. HPI Narrative KI GUTIERREZ, is a 33 M with a past medical history of obesity; with BMI of 35 this admission, tobacco abuse, history of cannabis abuse, history of mediastinal mass; with benign teratoma s/p excision (2003) and recent Paronychia of the Right third digit who presents to [facility] ER complaining of worsening pain, redness and swelling of the Right third digit. Mr. Gutierrez reports his symptoms began approximately one month ago after his dog bit the middle finger on his Right hand with pain since that time with erythema and fluctuance just proximal to the nail bed. 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 He denies associated fever, chills, nausea, vomiting, diarrhea, constipation, abdominal pain, chest pain, SOB, paresthesias or increased pain with flexion or extension. In the ER he was noted to have X-ray evidence of Osteomyelitis of the third finger of the Right hand along with a suspected tiny foreign body in the dorsal soft tissues with patient then admitted to the general medical floor for ongoing care for a stay that is expected to extend beyond 2 midnights. [facility] Medical History excision of teratoma Teratoma Home Medications ?Medication ?Instructions ?Recorded ?Last Taken ?Type NK 03/05/24 Unknown History Allergy/AdvReac Type Severity Reaction Status Date / Time No Known Allergies Allergy Verified 03/05/24 21:23 Family History Aunt Breast cancer Grandmother No problems noted. Mother No problems noted. Grandfather Heart disease Surgical History History of biopsy Social History Smoking Status: Current every day smoker tobacco type: cigarettes substance use type: marijuana ROS ROS Narrative Review of Systems: Constitutional: Patient denies fever or chills. Eyes: Patient denies changes in vision or discharge from eyes. ENT: Patient denies runny nose, sore throat or ear pain. Resp: Patient denies SOB or cough. CV: Patient denies chest pain, palpitations or heart racing. GI: Patient denies abdominal pain, nausea, vomiting, diarrhea or constipation. : Patient denies dysuria or hematuria. MSK: Patient admits to increased pain, redness and swelling of his Right middle finger. Skin: Patient has paronychia just proximal to the nail bed of his Right middle finger. Psych: Patient denies symptoms of uncontrolled depression or anxiety. Neuro: Patient denies headache, paresthesias or focal neurologic deficits. Allergy: Patient denies lip swelling, tongue swelling or urticaria. Hematology: Patient denies easy bleeding or easy bruisability. Endocrinology: Patient denies polyuria, polydipsia and polyphagia. 14 point ROS otherwise negative except for positives noted above in HPI. Vital Signs Vital Signs Vital Signs: 03/05/24 21:23 03/05/24 23:16 Temperature 96.1 F L 98.7 F Temperature Source Temporal Pulse Rate 100 87 Respiratory Rate 18 16 Blood Pressure 170/93 H 153/98 H Blood Pressure Mean 118 116 Pulse Ox 99 97 Oxygen Delivery Method Room Air Weight Weight: 251 lb Body Mass Index (BMI) 34.9 Physical Exam Const alert, oriented x3, no apparent distress and healthy appearing Constitutional Narrative: Obese. General Appearance: cooperative HEENT normocephalic, head/scalp atraumatic, hearing grossly normal bilaterally and moist oral mucous membranes Eyes PERRL and EOMs intact bilaterally Neck no lymphadenopathy and supple Resp normal respiratory effort, no retractions, no use of accessory muscles and clear to auscultation bilaterally Cardio regular rate and regular rhythm GI normal to inspection, nondistended, normoactive bowel sounds, soft to palpation, non-tender and non-distended GI Narrative: Obese. Extremity Extremity Narrative: Paronychia of the third digit of the Right hand with erythema and TTP with no signs of vascular compromise or other deformity. Skin Skin Narrative: Paronychia of the third digit of the Right hand with erythema and TTP with no signs of vascular compromise or other deformity. Neuro oriented x3, CN's II-XII intact bilaterally, moves all extremities and no focal motor deficits Sensorium / Orientation: awake, alert, oriented to person, oriented to place and oriented to time Speech: speech normal Psych affect normal Results Medical Records Data Attestation: I reviewed the patient's medical records Lab / Micro Data Attestation: I reviewed the patient's lab results. 03/05/24 23:00 03/05/24 23:00 Labs: Laboratory Results - last 24 hr 03/05/24 23:00: WBC 8.6, RBC 4.72, Hgb 16.2, Hct 46.3, MCV 98.1 H, MCH 34.3 H, MCHC 35.0, RDW Std Deviation 44.0 H, RDW Coeff of Flynn 12.1, Plt Count 271, MPV 8.8, Immature Gran % (Auto) 0.200, Neut % (Auto) 63.6, Lymph % (Auto) 27.1, [place] % (Auto) 7.4, Eos % (Auto) 1.2, Baso % (Auto) 0.5, Absolute Neuts (auto) 5.4, Absolute Lymphs (auto) 2.32, Nucleated RBC % 0, Sodium 140, Potassium 3.8, C hloride 108 H, Carbon Dioxide 23.0, Anion Gap 10, BUN 10, Creatinine 0.91, Estim Creat Clear Calc 150.92, Est GFR (MDRD) Af Amer 125, Est GFR (MDRD) Non-Af 103, BUN/Creatinine Ratio 11.0, Glucose 102, Calcium 9.1 Imaging Radiology Impression Finger X-Ray 03/05/24 22:10 IMPRESSION: Findings suspicious for acute osteomyelitis involving the distal phalangeal tuft. Tiny possible foreign body in the dorsal soft tissues. Electronically Signed: Megan Mitchell MD at 22:41 EDT , Assessment & Plan Assessment/Plan (1) Osteomyelitis: QUALIFIERS: Laterality: right Osteomyelitis location: hand O steomyelitis type: unspecified type Qualified Code(s): M86.9 - Osteomyelitis, unspecified (2) Paronychia: (3) Obesity (BMI 30-39.9): (4) Tobacco abuse: (5) Cannabis abuse: (6) History of thoracic teratoma: PLAN: Plan 1. X-ray evidence of Osteomyelitis of the third finger of the Right hand along with a suspected tiny foreign body in the dorsal soft tissues with chronic Paronychia after dog bite ~1 month ago - Admit to general medical floor. Continue empiric IV Zosyn and IV Vancomycin and await culture and sensitivity data. Give Tylenol prn for [id number] (level 1-5/10) pain or fever. Give IV Morphine prn for severe (level 6-10/10) pain. Finally, we will consult Dr. Lockhart of the plastic surgery service to see this patient on-rounds in the AM for further recommendations with help appreciated in advance. 2. Obesity; with BMI of 35 this admission - Weight loss will be recommended. Check TSH. 3. Tobacco Abuse - Tobacco Cessation will be strongly encouraged with Nicotine patch offered to control cravings. 4. History of cannabis abuse - Cannabis Cessation will be strongly encouraged. 5. History of mediastinal mass; with benign teratoma s/p excision (2003) - Noted. 6. DVT prophylaxis - SCD's only with possible impending I&D. Total time: Approximately (but not less than) 55 minutes. Charges/Coding Visit Charges Inpatient E&M: 59423 Init Hosp L2
[2024-03-05] MEDS: Vancomycin HCl 1,750 MG in 0.9% Normal Saline (500mL Bag) 500 ML 250 MG IV (23:50)
[2024-03-06] VITALS (9 sets, daily range): BP systolic 114–143; BP diastolic 62–95; PULSE 61–94; RESP 16–18; TEMP 36.4–36.8; O2SAT 96–100; BMI 34.5
[2024-03-06] MEDS: Morphine 2 MG/ML Syringe IV ×4 (01:04→20:46)
--- NOTE | 2024-03-06 01:04 | PCM.RX.CS ---
Consult Antibiotic Management Pharmacy has been consulted to manage selected antibiotic: Vancomycin Type of Intervention Type of Consult: New start Suspected Infection Suspected Infection: Osteomyelitis Labs Labs: Sodium 140 mmol/L (136-145) 03/05/24 23:00 Potassium 3.8 mmol/L (3.5-5.1) 03/05/24 23:00 Chloride 108 mmol/L (98-107) H 03/05/24 23:00 Carbon Dioxide 23.0 mmol/L (21.0-32.0) 03/05/24 23:00 Anion Gap 10 (5-15) 03/05/24 23:00 BUN 10 mg/dL (7-18) 03/05/24 23:00 Creatinine 0.91 mg/dL (0.70-1.30) 03/05/24 23:00 Est GFR (MDRD) Af Amer 125 mL/min (>60) 03/05/24 23:00 Est GFR (MDRD) Non-Af 103 mL/min (>60) 03/05/24 23:00 BUN/Creatinine Ratio 11.0 RATIO (10-20) 03/05/24 23:00 Glucose 102 mg/dL (74-106) 03/05/24 23:00 Dosing Weight Weight used for dosin kg Estimated Creatinine Clearance Estimated Creatinine Clearance: 151 Goal Trough Goal Trough: 15-20 mcg/mL Pharmacy Plan for Drug Dosing Pharmacy Plan for Drug Dosing: Pharmacy Service will continue to monitor and adjust dosing as required. Follow-Up Labs Follow-Up Labs: Trough: Vancomycin Date/Time Labs Ordered Labs to be done on [date and time ordered]: 03/06/24 @4052
[2024-03-06] MEDS: 0.9% Normal Saline (1000mL) 1,000 ML 70 ML IV (05:05)
[2024-03-06] MEDS: Piperacil/Tazobactam 3.375 GM in 0.9% Normal Saline (50mL MB+) 50 ML IV ×3 (05:06→22:21)
[2024-03-06 07:05] LABS: Absolute Lymphocyte Count 1.99 X10^3/uL (0.83-4.51); Absolute Neutrophil Count 3.2 X10^3/uL (2.0-7.7); Basophil# 0.03 X10^3/uL; Basophil% 0.5 % (0-1); Eosinophil# 0.11 X10^3/uL; Eosinophils% 1.8 % (0-5); Hematocrit 44.1 % (40-54); Hemoglobin 15.9 g/dL (13.0-16.5); Lymphocyte # 1.99 X10^3/ul (0.83-4.51); Lymphocyte % 33.1 % (19-41); Mean Corp Hgb Conc 36.1 g/dL (32-36); Mean Corpuscular Hgb 36.3 pg (27.0-32.0); Mean Corpuscular Volume 100.7 fL (80-94); Mean Platelet Vol. 9.5 fl (6.2-12.0); Monocyte# 0.65 X10^3/uL; Monocyte% 10.8 % (0-10); NRBC Flagged by Analyzer 0 % (0-5); Neutrophil # 3.21 X10^3/uL (2.7-7.7); Neutrophil % 53.3 % (47-70); Platelet Count 243 K/mm3 (150-450); RBC Distribution Width CV 12.2 % (11.6-14.6); RBC Distribution Width SD 44.4 fl (35.1-43.9); Red Blood Count 4.38 M/mm3 (4.6-6.2)
[2024-03-06 07:33] LABS: AST(SGOT) 58 U/L (15-37); Alanine Aminotransfer ALT/SGPT 107 U/L (16-61); Albumin, Serum 3.4 g/dL (3.2-5.0); Alkaline Phosphatase 76 U/L (45-117); Anion Gap 5 (5-15); BUN 12 mg/dL (7-18); BUN/Creat Ratio 12.6 RATIO (10-20); Calcium,Total 8.7 mg/dL (8.5-10.1); Chloride 111 mmol/L (98-107); Creatinine, Serum 0.95 mg/dL (0.70-1.30); EST Glomerular Filtration Rate 98 mL/min (>60); Est Glom Filt Rate - Afr Amer 118 mL/min (>60); Globulin 3.5 g/dL (2.2-4.2); Glucose 93 mg/dL (74-106); Potassium 3.6 mmol/L (3.5-5.1); Protein, Total 6.9 g/dL (6.4-8.2); Sodium Level 139 mmol/L (136-145)
--- NOTE | 2024-03-06 07:50 | PCM.PN.HOSP ---
Reason for Visit Reason for Visit: Wound on third digit of right hand Subjective Subjective Patient is a 33-year-old white male who presented to the emergency department at [facility] on 03/05/2020 for due to worsening pain, redness, and swelling of the third digit on his right hand. He reported his symptoms began approximately 1 month prior to presentation after he had a dog bite to the middle finger. Since that time he has had increasing erythema and fluctuance just proximal to the nailbed. Over the past several days prior to presentation he noted progressively worsening redness, swelling, and pain after he reinjured the same finger at work. 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 He was concerned that his finger was infected and may also have been broken and his most recent injury. Vital signs on presentation showed a temperature of 96.1, heart rate 100, blood pressure 170/93 with a repeat of 153/98 and pulse ox of 99% on room air. CBC showed a normal white count with no left shift and was otherwise fairly unremarkable. Chemistry panel was normal. Plain film of his right hand showed findings suspicious for acute osteomyelitis involving the distal phalangeal tuft as well as a possible tiny foreign body at the dorsal soft tissues. Nothing was available for culture. He was given as needed pain medication and started on vancomycin and Zosyn for broad coverage. Plastic surgery has been consulted for assistance with management. Patient states his finger is about the same. We did discuss possible need for partial amputation of that finger based on the imaging as it does appear he has osteomyelitis of the tip. We are waiting for plastic surgery to evaluate the patient. Will keep him n.p.o. until plastic surgery can see him. Objective Data Objective Data Vital Signs: Vital Signs Temp Pulse Resp BP Pulse Ox O2 Del Method 97.8 F 61 18 114/76 97 Room Air 03/06/24 05:01 03/06/24 05:01 03/06/24 05:01 03/06/24 05:01 03/06/24 05:01 03/06/24 05:01 Oxygen Delivery Method Room Air Weight: 112.491 kg Body Mass Index (BMI) 34.5 Intake & Output: Intake and Output for Last 24 Hours 03/04/24 03/05/24 03/06/24 23:59 23:59 23:59 Intake Total 50 / 50 575 / 575 Balance 50 / 50 575 / 575 Lab / Micro Data 03/06/24 06:05 03/06/24 06:05 Labs: Laboratory Results - last 24 hr 03/05/24 23:00: WBC 8.6, RBC 4.72, Hgb 16.2, Hct 46.3, MCV 98.1 H, MCH 34.3 H, MCHC 35.0, RDW Std Deviation 44.0 H, RDW Coeff of Flynn 12.1, Plt Count 271, MPV 8.8, Immature Gran % (Auto) 0.200, Neut % (Auto) 63.6, Lymph % (Auto) 27.1, [place] % (Auto) 7.4, Eos % (Auto) 1.2, Baso % (Auto) 0.5, Absolute Neuts (auto) 5.4, Absolute Lymphs (auto) 2.32, Nucleated RBC % 0, Sodium 140, Potassium 3.8, Chloride 108 H, Carbon Dioxide 23.0, Anion Gap 10, BUN 10, Creatinine 0.91, Estim Creat Clear Calc 150.92, Est GFR (MDRD) Af Amer 125, Est GFR (MDRD) Non-Af 103, BUN/Creatinine Ratio 11.0, Glucose 102, Calcium 9.1 03/06/24 06:05: WBC 6.0, RBC 4.38 L, Hgb 15.9, Hct 44.1, MCV 100.7 H, MCH 36.3 H, MCHC 36.1 H, RDW Std Deviation 44.4 H, RDW Coeff of Flynn 12.2, Plt Count 243, MPV 9.5, Immature Gran % (Auto) 0.500, Neut % (Auto) 53.3, Lymph % (Auto) 33.1, [place] % (Auto) 10.8 H, Eos % (Auto) 1.8, Baso % (Auto) 0.5, Absolute Neuts (auto) 3.2, Absolute Lymphs (auto) 1.99, Nucleated RBC % 0, Sodium 139, Potassium 3.6, Chloride 111 H, Carbon Dioxide 23.0, Anion Gap 5, BUN 12, Creatinine 0.95, Estim Creat Clear Calc 143.70, Est GFR (MDRD) Af Amer 118, Est GFR (MDRD) Non-Af 98, BUN/Creatinine Ratio 12.6, Glucose 93, Calcium 8.7, Total Bilirubin 0.70, AST 58 H, ALT 107 H, Alkaline Phosphatase 76, Total Protein 6.9, Albumin 3.4, Globulin 3.5, Albumin/Globulin Ratio 1.0, TSH 3.520 Radiography Diagnostic Testing: Radiology Impression Finger X-Ray 03/05/24 22:10 IMPRESSION: Findings suspicious for acute osteomyelitis involving the distal phalangeal tuft. Tiny possible foreign body in the dorsal soft tissues. Electronically Signed: Megan Mitchell MD at 22:41 EDT , Physical Exam Const alert, oriented x3, no apparent distress, healthy appearing and well nourished; Negative for average body habitus Constitutional Narrative: Obese, white male, walking around the room independently, family at bedside, does not appear toxic, pleasant HEENT head/scalp atraumatic and moist oral mucous membranes HEENT Narrative: Mallampati 3, no thrush Head and Scalp: normocephalic Resp normal respiratory effort, no retractions, no use of accessory muscles and clear to auscultation bilaterally Auscultation: Negative for rales, rhonchi or wheezes Cardio regular rate, regular rhythm, S1 normal heart sound, S2 normal heart sound, no murmurs, no rub, no gallops and no clicks GI normal to inspection, nondistended, normoactive bowel sounds, soft to palpation and non-tender Extremity no clubbing, cyanosis or edema Extremity Narrative: Right hand with third digit tip quite swollen and erythematous, tender to touch, nailbed with black discoloration centrally, no significant drainage noted, pain with movement of the distal tip of the joint Neuro oriented x3, moves all extremities and no focal motor deficits Psych affect normal Psych Narrative: Very pleasant, somewhat anxious about the whole procedure Assessment & Plan Assessment/Plan (1) Osteomyelitis: QUALIFIERS: Laterality: right Osteomyelitis location: hand Osteomyelitis type: unspecified type Qualified Code(s): M86.9 - Osteomyelitis, unspecified PLAN: Plan Osteomyelitis of the distal tip of the third digit of the right hand -Continue broad-spectrum antibiotics with vancomycin and Zosyn -Will schedule Tylenol 1 g Q8 -Start Celebrex 100 twice daily -Oxycodone 5 mg every 4 hours as needed -Morphine is available currently for breakthrough pain -Consultation to plastic surgery for assistance with management Elevated blood pressure -Patient without formal diagnosis of hypertension -as needed hydralazine for now and if patient has consistently elevated blood pressure may need to add antihypertensive Mild transaminitis -No need for acute workup while hospitalized -Recommend outpatient follow-up after discharge -Will monitor periodically with antibiotic use History of tobacco abuse -Recommend cessation -Nicotine patch available 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
[2024-03-06] MEDS: Vancomycin HCl 1,500 MG in 0.9% Normal Saline (500mL Bag) 500 ML 250 MG IV ×2 (08:11→17:48)
--- NOTE | 2024-03-06 10:55 | CASEMGMT ---
YVAN CALDERÓN Assessment: Face to Face with pt for initial transition planning/care coordination assessment. YVAN CALDERÓN introduced self and role at [facility], pt voices understanding and consents to assessment. Pt is A&O x4 and answers all questions appropriately at this time. Pt lying in bed in no distress, pt and son in room. Pt agreeable to answering questions with family in the room. Care providers, pharmacy, and demographics verified/updated. Strata: 2 Admitting Dx: Osteomyelitis of the 3rd digit of the right hand. PCP: None, denies wanting information of local PCP's Specialists: Denies Preferred Pharmacy: [facility] Insurance: [facility] Prescription Benefit: yes LNOK: Living Arrangements: Pt lives with and son in a split level home with 7 steps to enter. ADLs: Pt reports I with ADLs and IADLs. Transportation: Pt drives self and denies concerns with transportation. DME: Denies HHC/SNF: Denies Pt states no concerns with going home at time of dc. Pt states no further concerns/needs. CM to follow. Advised pt to ask CM if any further question/concerns/needs arise, voices understanding. Pt Goal: Home Plan: Home, follow plastics and for antibiotic needs at time of DC. Amor SANTORO CM
[2024-03-06] MEDS: oxyCODONE 5 MG Tablet PO ×3 (12:03→22:25)
--- NOTE | 2024-03-06 13:18 | MRI_ITS ---
HISTORY: osteo 3 digit distal tip R hand Date: 03/06/2024 5:01 PM Technique: MRI examination obtained with multiplanar multi echo imaging. Location: RIGHT hand Contrast: 20 mL Clariscan Comparison: Plain film examination of 03/05/2024 FINDINGS: BONY ELEMENTS: 1. Normal alignment of the bony elements. There are however significant signal or contrast abnormality involving the distal phalanx of 3rd digit. Consistent with extensive edema and enhancement characteristic of osteomyelitis. There is surrounding soft tissue edema/cellulitis. 2. Remaining bony elements have normal configuration and marrow signal. No other areas of abnormal enhancement. JOINT SPACES: 1. Joint spaces are maintained. No abnormal fluid collections noted particularly at the level of the 3rd DIP. DEEP MUSCULAR COMPARTMENTS: 1. Deep muscular compartments are well-maintained. 2. Normal appearance of the tendon complex particularly involving the 3rd digit. NEURAL VASCULAR COMPARTMENTS: 1. Normal appearance of the neural vascular compartments SUBCUTANEOUS SOFT TISSUES. 1. Sinus soft tissue stranding and enhancement involving the 3rd digit consistent with cellulitis. MRI/Upper Ext No Joint W/WO Cont IMPRESSION: 1. Extensive edema and enhancement involving the 3rd distal phalanx consistent with extensive osteomyelitis. 2. Remaining bony elements have normal appearance, no other evidence of osteomyelitis. 3. Diffuse cellulitis involving the there are digit greatest along the distal aspect of the digit. No soft tissue abscess noted. 4. Remaining bony elements joint spaces and the muscular fascial planes have normal appearance. Electronically Signed: Fred Carrera MD at 19:27 EDT ,
--- NOTE | 2024-03-06 13:22 | EX.PCM.CON.S ---
Assessment & Plan Assessment/Plan (1) Osteomyelitis: QUALIFIERS: Osteomyelitis type: unspecified type Osteomyelitis location: hand Laterality: right Qualified Code(s): M86.9 - Osteomyelitis, unspecified PLAN: Xray examined, appears to have some osteomyelitis. Discussed risks, benefits, and alterantives to I&D. Abscess drained and nail bed removed, please see separate operative note. Dial soap soaks TID with XF to the nailbed I talked to the primary team and we are ordering an MRI to see extent of distal phalanx involvement. PSU will follow. 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 He reports that he was bit by dog about 1 month ago and presented to the emergency department with swelling and purulent drainage last night. He was not initially treated for the dog bite in the right hand. He reports that the swelling and drainage and pain appeared over the course the last couple days. There was x-ray evidence last night of osteomyelitis from the imaging taken in the emergency department and therefore he was admitted to medicine for broad-spectrum antibiotics. Patient reports sharp severe pain in the right upper extremity worsened by movements and improved with rest and elevation. No personal or family history of blood clots or problems with anesthesia. He does use tobacco product (chews) [facility] Medical History excision of teratoma Teratoma Home Medications ?Medication ?Instructions ?Recorded ?Last Taken ?Type NK 03/05/24 Unknown History Allergy/AdvReac Type Severity Reaction Status Date / Time No Known Allergies Allergy Verified 03/05/24 21:23 Family History Aunt Breast cancer Grandmother No problems noted. Mother No problems noted. Grandfather Heart disease Surgical History History of biopsy Social History Smoking Status: Current every day smoker tobacco type: cigarettes substance use type: marijuana Physical Exam Narrative Right upper extremity Inspection Mallet finger right long finger Clear trauma to the nailbed with underlying pus beneath the nail, especially at the level of the proximal sterile matrix and involving the germinal matrix under the eponychium. Exquisitely tender to palpation. He is able to bend all right long finger joints. Sensation: Intact to light touch in the radial ulnar borders of the right long finger Vascular: Right long fingertip is warm well-perfused Lab / Micro Data 03/06/24 06:05 03/06/24 06:05 Labs: Laboratory Results - last 24 hr 03/05/24 23:00: WBC 8.6, RBC 4.72, Hgb 16.2, Hct 46.3, MCV 98.1 H, MCH 34.3 H, MCHC 35.0, RDW Std Deviation 44.0 H, RDW Coeff of Flynn 12.1, Plt Count 271, MPV 8.8, Immature Gran % (Auto) 0.200, Neut % (Auto) 63.6, Lymph % (Auto) 27.1, [place] % (Auto) 7.4, Eos % (Auto) 1.2, Baso % (Auto) 0.5, Absolute Neuts (auto) 5.4, Absolute Lymphs (auto) 2.32, Nucleated RBC % 0, Sodium 140, Potassium 3.8, Chloride 108 H, Carbon Dioxide 23.0, Anion Gap 10, BUN 10, Creatinine 0.91, Estim Creat Clear Calc 150.92, Est GFR (MDRD) Af Amer 125, Est GFR (MDRD) Non-Af 103, BUN/Creatinine Ratio 11.0, Glucose 102, Calcium 9.1 03/06/24 06:05: WBC 6.0, RBC 4.38 L, Hgb 15.9, Hct 44.1, MCV 100.7 H, MCH 36.3 H, MCHC 36.1 H, RDW Std Deviation 44.4 H, RDW Coeff of Flynn 12.2, Plt Count 243, MPV 9.5, Immature Gran % (Auto) 0.500, Neut % (Auto) 53.3, Lymph % (Auto) 33.1, [place] % (Auto) 10.8 H, Eos % (Auto) 1.8, Baso % (Auto) 0.5, Absolute Neuts (auto) 3.2, Absolute Lymphs (auto) 1.99, Nucleated RBC % 0, Sodium 139, Potassium 3.6, Chloride 111 H, Carbon Dioxide 23.0, Anion Gap 5, BUN 12, Creatinine 0.95, Estim Creat Clear Calc 143.70, Est GFR (MDRD) Af Amer 118, Est GFR (MDRD) Non-Af 98, BUN/Creatinine Ratio 12.6, Glucose 93, Calcium 8.7, Total Bilirubin 0.70, AST 58 H, ALT 107 H, Alkaline Phosphatase 76, Total Protein 6.9, Albumin 3.4, Globulin 3.5, Albumin/Globulin Ratio 1.0, TSH 3.520 Imaging Radiology Impression Finger X-Ray 03/05/24 22:10 IMPRESSION: Findings suspicious for acute osteomyelitis involving the distal phalangeal tuft. Tiny possible foreign body in the dorsal soft tissues. Electronically Signed: Megan Mitchell MD at 22:41 EDT Reading Location ID and State: [address] [place] [address] Tel , Service support , Charges/Coding Multi Select Codes Visit Charges Office Visit/Consults: 81924 IP Consult L5
--- NOTE | 2024-03-06 13:30 | OP.PCM_ITS ---
Operative Report (Standard) Operative Information Surgery/Procedure Performed: Right long finger Nail plate removal and abscess drainage CPT 99005 Surgeon: Tyron Lockhart Date of Procedure: 03/06/24 Procedure Start Time: 01:00 Procedure Stop Time: 01:15 Pre-Operative Diagnosis: Right long finger osteomyelitis Post-Operative Diagnosis: same Select all DRAINS/GRAFTS/IMPLANTS that apply: None Type of Anesthesia: Local (7 cc of 1% lidocaine ) Estimated Blood Loss: minimal Specimen collected: Yes Description of specimen(s) removed: cultures Description of surgery: Procedure performed Nail plate removal right long finger with subsequent abscess drainage 23506 (right long finger) Indications: Patient is a 33-year-old male who was bit by dog on the right long finger through the nail approximately 1 month ago and presents with concerns for osteomyelitis with a subungual abscess. I talked him about risks benefits and alternatives to nail removal and abscess drainage underneath the eponychium. He agreed to proceed. Operative details Patient was prepped and draped in sterile fashion and timeout was performed. He was anesthetized with 6 cc of 1% plain lidocaine for digital block. The nail was then removed atraumatically with tenotomy scissors and a hemostat. I immediately encountered a significant amount of pus beneath the nail and in the eponychium once the nail was removed and this was cultured. The wound was irrigated with copious amounts of normal saline. I carefully spread with tenotomy scissors towards an area of fluid collection on the radial side of the long finger eponychium and this was washed out with another bout of copious amounts of normal saline. There is no exposed bone at the base of the wound for a culture. The patient was then placed in a Dial soap soak. The wound was adequately hemostasis the end of the case. Following the Dial soap soak he was placed in Xeroform and his finger was wrapped. Postoperative plan: Plan for MRI to assess the extent of the involvement of the osteomyelitis in the distal phalanx medullary cavity. This will help discuss further options for the patient (attempted salvage with IV antibiotics versus revision amputation). Surgical Findings: Purulence underneath the nail plate and beneath the eponychial fold. 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
--- NOTE | 2024-03-06 13:34 | WOUNDNOTE ---
In with Dr Lockhart and KEN Mckeon. consent signed for removal of the right long finger nail bed and drainage of abscess. area was numbed. the nail bed was removed. there was some purulence and a hematoma noted under the nail bed. bleeding was controlled. hand was soaked in soapy water for approx 20 min. pat hand dry. placed xeroform over the nail bed and covered with dry dressings. wrapped with martin. pt tolerated well. cultures were sent to lab as ordered.
[2024-03-06] MEDS: Lidocaine 1% (20 ml mdv) 20 ML Vial INFILT (13:35)
[2024-03-06] MEDS: Acetaminophen 500 MG Tablet 1000 MG PO ×2 (13:38→22:22)
[2024-03-06 15:41] LABS: M R Staph aureus DNA By PCR Negative (Negative); Probe Check PASS; Specimen Processing Control PASS; Staph aureus DNA By PCR NEGATIVE (Negative)
--- NOTE | 2024-03-06 16:28 | NURSING ---
pt to mri
[2024-03-06] MEDS: Ascorbic Acid 500 MG Tablet 1000 MG PO (17:51)
[2024-03-06] MEDS: Celecoxib 100 MG Capsule PO (22:22)
[2024-03-07 00:14] LABS: Vancomycin, Trough Level 26.6 ug/mL (5.0-15.0)
--- NOTE | 2024-03-07 00:34 | PHA.PHARE_ITS ---
Consult Antibiotic Management Pharmacy has been consulted to manage selected antibiotic: Vancomycin Type of Intervention Type of Consult: Follow-up Suspected Infection Suspected Infection: Osteomyelitis Labs Labs: Sodium 139 mmol/L (136-145) 03/06/24 06:05 Potassium 3.6 mmol/L (3.5-5.1) 03/06/24 06:05 Chloride 111 mmol/L (98-107) H 03/06/24 06:05 Carbon Dioxide 23.0 mmol/L (21.0-32.0) 03/06/24 06:05 Anion Gap 5 (5-15) 03/06/24 06:05 BUN 12 mg/dL (7-18) 03/06/24 06:05 Creatinine 0.95 mg/dL (0.70-1.30) 03/06/24 06:05 Est GFR (MDRD) Af Amer 118 mL/min (>60) 03/06/24 06:05 Est GFR (MDRD) Non-Af 98 mL/min (>60) 03/06/24 06:05 BUN/Creatinine Ratio 12.6 RATIO (10-20) 03/06/24 06:05 Glucose 93 mg/dL (74-106) 03/06/24 06:05 Vancomycin Trough 26.6 ug/mL (5.0-15.0) H 03/06/24 23:20 Microbiology Microbiology: Microbiology 03/06/24 13:00 Wound - Finger Gram Stain - Final Dosing Weight Weight used for dosin kg Estimated Creatinine Clearance Estimated Creatinine Clearance: 144 Goal Trough Goal Trough: 15-20 mcg/mL Pharmacy Plan for Drug Dosing Pharmacy Plan for Drug Dosing: Vancomycin trough level of 26.6 was high- above the target range of 15-20. However, the previous dose had been hung later than scheduled, so the trough represented just a 5.5hour level. Vancomycin dosing calculator recommended an a djustment to 1750mg on a q12h schedule. Another trough will be drawn prior to the fourth dose of the new regimen. Pharmacy Service will continue to monitor and adjust dosing as required. Follow-Up Labs Follow-Up Labs: Trough: Vancomycin Date/Time Labs Ordered Labs to be done on [date and time ordered]: 03/08/24 @1230
[2024-03-07] MEDS: Vancomycin HCl 1,750 MG in 0.9% Normal Saline (500mL Bag) 500 ML 250 MG IV (01:30)
[2024-03-07 02:00] VITALS: BP 142/71; PULSE 67; RESP 18; TEMP 2.7; TEMP 36.8; O2SAT 100
[2024-03-07 02:10] VITALS: BP 142/71; PULSE 67; RESP 18; TEMP 36.8; O2SAT 100
[2024-03-07] MEDS: oxyCODONE 5 MG Tablet PO ×2 (05:20→10:16)
[2024-03-07 05:21] VITALS: BMI 36.1
[2024-03-07 05:27] VITALS: BP 141/82; PULSE 82; RESP 18; TEMP 36.8; O2SAT 100
[2024-03-07] MEDS: Acetaminophen 500 MG Tablet 1000 MG PO (05:30)
[2024-03-07] MEDS: Piperacil/Tazobactam 3.375 GM in 0.9% Normal Saline (50mL MB+) 50 ML IV (05:37)
--- NOTE | 2024-03-07 06:15 | WOUNDNOTE ---
Nursing had soaked finger this am. In with Dr Lockhart to assess the right long finger. dressing removed. there was a small amount of drainage noted. redness appears improved. no purulence noted today. xeroform gauze in place. covered with dry dressings anf wrapped with martin. pt tolerated well.
--- NOTE | 2024-03-07 06:55 | PCM.PN.SRG ---
Subjective Subjective Pain controlled overall. Walking halls this morning. Reviewed MRI results with him on rounds. Objective Data Objective Data Right long finger osteomyelitis throughout the distal phalanx Vital Signs: Vital Signs Temp Pulse Resp BP Pulse Ox O2 Del Method 98.3 F 82 18 141/82 H 100 Room Air 03/07/24 05:27 03/07/24 05:27 03/07/24 05:27 03/07/24 05:27 03/07/24 05:27 03/07/24 05:27 Oxygen Delivery Method Room Air Weight: 259 lb 4.218 oz Body Mass Index (BMI) 36.1 Intake & Output: Intake and Output for Last 24 Hours 03/05/24 03/06/24 03/07/24 23:59 23:59 23:59 Intake Total 50 / 50 2813.67 / 3063.67 835 / 835 Balance 50 / 50 2813.67 / 3063.67 835 / 835 Lab / Micro Data 03/06/24 06:05 03/06/24 06:05 Labs: Laboratory Results - last 24 hr 03/06/24 06:05: WBC 6.0, RBC 4.38 L, Hgb 15.9, Hct 44.1, MCV 100.7 H, MCH 36.3 H, MCHC 36.1 H, RDW Std Deviation 44.4 H, RDW Coeff of Flynn 12.2, Plt Count 243, MPV 9.5, Immature Gran % (Auto) 0.500, Neut % (Auto) 53.3, Lymph % (Auto) 33.1, [place] % (Auto) 10.8 H, Eos % (Auto) 1.8, Baso % (Auto) 0.5, Absolute Neuts (auto) 3.2, Absolute Lymphs (auto) 1.99, Nucleated RBC % 0, Sodium 139, Potassium 3.6, Chloride 111 H, Carbon Dioxide 23.0, Anion Gap 5, BUN 12, Creatinine 0.95, Estim Creat Clear Calc 143.70, Est GFR (MDRD) Af Amer 118, Est GFR (MDRD) Non-Af 98, BUN/Creatinine Ratio 12.6, Glucose 93, Calcium 8.7, Total Bilirubin 0.70, AST 58 H, ALT 107 H, Alkaline Phosphatase 76, Total Protein 6.9, Albumin 3.4, Globulin 3.5, Albumin/Globulin Ratio 1.0, TSH 3.520 03/06/24 13:00: S.aureus Protein A PCR NEGATIVE, MRSA (PCR) Negative 03/06/24 23:20: Vancomycin Trough 26.6 H Micro: Microbiology 03/06/24 13:00 Wound - Finger Gram Stain - Final Radiography Diagnostic Testing: Radiology Impression Upper Extremity MRI 03/06/24 13:18 IMPRESSION: 1. Extensive edema and enhancement involving the 3rd distal phalanx consistent with extensive osteomyelitis. 2. Remaining bony elements have normal appearance, no other evidence of osteomyelitis. 3. Diffuse cellulitis involving the there are digit greatest along the distal aspect of the digit. No soft tissue abscess noted. 4. Remaining bony elements joint spaces and the muscular fascial planes have normal appearance. Electronically Signed: Fred Carrera MD at 19:27 EDT , Physical Exam Narrative RUE: Dressings removed. Swelling/cellulitis on right long finger (RLF) tip. No drainage. No pain along flexor sheath or in the palm. Const alert and oriented x3 Assessment & Plan Assessment/Plan (1) Osteomyelitis: QUALIFIERS: Osteomyelitis type: unspecified type Osteomyelitis location: hand Laterality: right Qualified Code(s): M86.9 - Osteomyelitis, unspecified PLAN: I talked the patient extensively about the risks of surgery, including bleeding, failure to clear infection, damage to surrounding structures, nerve pain/neuromas, surgical site dehiscence and wound formation, need for wound care, need for repeat operations, and failure to obtain the desired result. The benefits and alternatives of this surgery were also discussed. We discussed treatment of the osteomyelitis with long-term antibiotics, but given the extent of the osteomyelitis (entire distal phalanx), we talked about how this would be a challenge. He wants to get back to work as soon as possible and is not interested in attempting salvage. All of their questions were answered, and Mr. Gutierrez is electing to undergo amputation of the osteomyelitic bone. Plan for distal interphalangeal joint (DIP)-level amputation of the RLF in the operating room next week with biopsy of the distal portion of the middle phalanx. This will give time for the cellulitis in the surrounding tissues to improve and be better conditioned for wound closure. O.K. for discharge from plastic surgery standpoint on antibiotics and Dial soap soaks (BID with XF and dry dressing). Charges/Coding Procedures Integumentary [id number]: 86189 Global Visit
[2024-03-07] MEDS: Morphine 2 MG/ML Syringe IV (07:45)
[2024-03-07] MEDS: Ascorbic Acid 500 MG Tablet 1000 MG PO (07:54)
[2024-03-07] MEDS: Celecoxib 100 MG Capsule PO (07:56)
[2024-03-07 08:02] VITALS: BP 159/91; PULSE 53; RESP 16; TEMP 36.4; O2SAT 99
--- NOTE | 2024-03-07 10:00 | PCM.CONS.GEN ---
Assessment & Plan Assessment/Plan (1) Osteomyelitis: QUALIFIERS: Osteomyelitis type: unspecified type Osteomyelitis location: hand Laterality: right Qualified Code(s): M86.9 - Osteomyelitis, unspecified PLAN: I&D 03/06/[address] Lockhart, cx pending. Plan is for amputation next week. Ok for home with po doxy 100mg bid and augmentin 875mg bid for one week pending definitive surgical management. Will follow, thank you, d/w Dr. Lockhart and Dr. Farris HPI Consult Data Date of Consult: 03/07/24 HPI Narrative Reason for Consultation: finger osteo HPI Narrative: KI ANAND, is a 33 M who presented 03/05 with worsening R 3rd finger pain, redness, swelling. His dog bit it a month ago, then hit it twice while at work. No drainage, no fever. He is R handed. Came to ED, admitted on vanc/zosyn. Had I&D by Dr. Lockhart 03/06. Feeling better. Full ROS performed and neg except as noted above. [facility] Medical History excision of teratoma Teratoma Home Medications ?Medication ?Instructions ?Recorded ?Last Taken ?Type NK 03/05/24 Unknown History Allergy/AdvReac Type Severity Reaction Status Date / Time No Known Allergies Allergy Verified 03/05/24 21:23 Family History Aunt Breast cancer Grandmother No problems noted. Mother No problems noted. Grandfather Heart disease Surgical History History of biopsy Social History Smoking Status: Current every day smoker tobacco type: cigarettes substance use type: marijuana Physical Exam Const alert, oriented x3 and no apparent distress General Appearance: cooperative HEENT normocephalic and head/scalp atraumatic Eyes PERRL and EOMs intact bilaterally Neck supple and No nodes Resp normal air movement and clear to auscultation bilaterally Cardio regular rate and regular rhythm GI soft to palpation, non-tender and non-distended Extremity General Extremity: Negative for edema Skin Skin Narrative: R 3rd finger wrapped Neuro CN's II-XII intact bilaterally Lab / Micro Data Attestation: I reviewed the patient's lab results. 03/06/24 06:05 03/06/24 06:05 Labs: Laboratory Results - last 24 hr 03/06/24 13:00: S.aureus Protein A PCR NEGATIVE, MRSA (PCR) Negative 03/06/24 23:20: Vancomycin Trough 26.6 H Micro: Microbiology 03/06/24 13:00 Wound - Finger Gram Stain - Final 03/06/24 13:00 Wound - Finger Wound Culture - Preliminary Gram Positive Cocci Imaging Radiology Impression Upper Extremity MRI 03/06/24 13:18 IMPRESSION: 1. Extensive edema and enhancement involving the 3rd distal phalanx consistent with extensive osteomyelitis. 2. Remaining bony elements have normal appearance, no other evidence of osteomyelitis. 3. Diffuse cellulitis involving the there are digit greatest along the distal aspect of the digit. No soft tissue abscess noted. 4. Remaining bony elements joint spaces and the muscular fascial planes have normal appearance. Electronically Signed: Fred Carrera MD at 19:27 EDT ,
--- NOTE | 2024-03-07 12:11 | PCM.DC.SUM ---
Providers Date of Admission: 03/05/24 Date of Discharge: 03/07/24 Primary Care Physician: Marlene Primary Care Phys Consultations 03/05/24 22:52 Consult: Plastic Surgery Routine Consulting Provider: Tyron Lockhart Reason for Consult: osteomyelitis EMERGENT Consult: Yes Notified: Yes Date Notified: 03/05/24 Time Notified: 22:53 Method of Notification: Verbal 03/06/24 00:41 Consult: General Surgery Routine Consulting Provider: Tyron Lockhart Reason for Consult: Osteomyelitis of the 3rd Digit of the Right Hand with Paronychia. EMERGENT Consult: No MD Notified: Yes Date Notified: 03/05/24 Time Notified: 23:54 Method of Notification: ED Physician Initiated 03/06/24 13:23 Consult: Infectious Disease Routine Consulting Provider: Tyron De La Cruz Reason for Consult: ANTIBIOTIC RECOMMENDATIONS, OSTEOMYELITIS 3RD DIGIT OF RIGHT HAND EMERGENT Consult: No Notified: Yes Date Notified: 03/06/24 Time Notified: 13:23 Method of Notification: Text Reason For Visit: OSTEOMYELITIS OF THE 3RD DIGIT OF THE RIGHT Diagnosis Discharge Diagnosis (1) Osteomyelitis: Status: Acute Code(s): M86.9 - Osteomyelitis, unspecified Qualifiers: Osteomyelitis type: unspecified type Osteomyelitis location: hand Laterality: right Qualified Code(s): M86.9 - Osteomyelitis, unspecified Medications at Discharge Home Medications NK 03/05/24 amlodipine 10 mg tablet 10 mg PO DAILY #30 tabs 03/07/24 amoxicillin 875 mg-potassium clavulanate 125 mg tablet 1 tab PO BID #14 tabs 03/07/24 doxycycline hyclate 100 mg tablet 100 mg PO BID #14 tabs 03/07/24 oxycodone 5 mg tablet 5 mg PO Q4H PRN PRN Pain Score 4-5 5 days #30 tabs 03/07/24 Hospital Course Operations - (Bedside I&D right third digit) Procedures - (X-ray and MRI right hand) Summary of Care Provided Minutes Spent on Discharge: 38 Hospital Course: Patient is a 33-year-old white male who presented to the emergency department at [facility] on 03/05/2020 for due to worsening pain, redness, and swelling of the third digit on his right hand. He reported his symptoms began approximately 1 month prior to presentation after he had a dog bite to the middle finger. Since that time he has had increasing erythema and fluctuance just proximal to the nailbed. Over the past several days prior to presentation he noted progressively worsening redness, swelling, and pain after he reinjured the same finger at work. 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 He was concerned that his finger was infected and may also have been broken and his most recent injury. Vital signs on presentation showed a temperature of 96.1, heart rate 100, blood pressure 170/93 with a repeat of 153/98 and pulse ox of 99% on room air. CBC showed a normal white count with no left shift and was otherwise fairly unremarkable. Chemistry panel was normal. Plain film of his right hand showed findings suspicious for acute osteomyelitis involving the distal phalangeal tuft as well as a possible tiny foreign body at the dorsal soft tissues. Nothing was available for culture. He was given as needed pain medication and started on vancomycin and Zosyn for broad coverage. Plastic surgery has been consulted for assistance with management. Plastic surgery evaluated the patient and did a bedside I&D on his right hand and cultures were sent. They are pending at the time of discharge. MRI of the right hand was performed and is consistent with pretty significant osteomyelitis is of the distal phalanx of the third digit on the right hand. Given the fact that there is still considerable edema plan is for discharge home on oral antibiotics per discussion with infectious disease utilizing Augmentin and doxycycline for 7 days with plans for distal finger amputation next week. Dressing instructions were given by plastic surgery and prescriptions for antibiotics were sent to local pharmacy prior to discharge. Patient's blood pressure was also significantly elevated throughout his entire hospitalization. I suspect some of this is anxiety but in order to optimize him in preparation for surgery and his overall health we did start amlodipine 10 mg daily. Prescription for this was also sent to local pharmacy in addition to his antibiotics and a short supply of as needed pain medication until he can get his surgery next week. Patient was discharged home in stable condition on 03/07/2024. Discharge diagnoses: Osteomyelitis of the distal tip of the third digit on the right hand Hypertension Mild transaminitis History of tobacco abuse History of mediastinal mass Obesity Cannabis use Alcohol use Physical Exam Const alert, oriented x3, no apparent distress, no limitations, healthy appearing and well nourished; Negative for average body habitus Constitutional Narrative: Obese, white male, walking around the room independently, walking around the room, does not appear toxic, pleasant General Appearance: cooperative, comfortable, well kempt and well developed Exam Limitations: no limitations Nutritional Appearance: obese HEENT normocephalic, head/scalp atraumatic, hearing grossly normal bilaterally and moist oral mucous membranes HEENT Narrative: Mallampati 3, no thrush Eyes PERRL, EOMs intact bilaterally and conjunctivae normal Eyes Narrative: No scleral icterus Neck no lymphadenopathy and supple Neck Narrative: Trachea midline Resp normal respiratory effort, no retractions, no use of accessory muscles and clear to auscultation bilaterally Auscultation: Negative for rales, rhonchi or wheezes Cardio regular rate, regular rhythm, S1 normal heart sound, S2 normal heart sound, no murmurs, no rub, no gallops and no clicks GI normal to inspection, nondistended, normoactive bowel sounds, soft to palpation and non-tender Extremity Extremity Narrative: Right hand with dressing in place status post I&D by plastic surgery, no peripheral edema, no cyanosis or clubbing Skin skin turgor normal, no jaundice, no petechiae and no mottling Skin Narrative: Neuro oriented x3, moves all extremities and no focal motor deficits Speech: speech normal Psych affect normal Psych Narrative: Interacts appropriately, slightly anxious today, ready to go home Weight / BMI Weight Weight: 117.6 kg Body Mass Index (BMI) 36.1 ABG / Lab / Microbiology Data 03/06/24 06:05 03/06/24 06:05 Laboratory: Laboratory Results - last 24 hr 03/06/24 13:00: S.aureus Protein A PCR NEGATIVE, MRSA (PCR) Negative 03/06/24 23:20: Vancomycin Trough 26.6 H Microbiology: Microbiology 03/06/24 13:00 Wound - Finger Gram Stain - Final 03/06/24 13:00 Wound - Finger Wound Culture - Preliminary Gram Positive Cocci Radiography Diagnostic Testing: Radiology Impression Upper Extremity MRI 03/06/24 13:18 IMPRESSION: 1. Extensive edema and enhancement involving the 3rd distal phalanx consistent with extensive osteomyelitis. 2. Remaining bony elements have normal appearance, no other evidence of osteomyelitis. 3. Diffuse cellulitis involving the there are digit greatest along the distal aspect of the digit. No soft tissue abscess noted. 4. Remaining bony elements joint spaces and the muscular fascial planes have normal appearance. Electronically Signed: Fred Carrera MD at 19:27 EDT , D/C Instructions Discharge Diet: No restrictions Discharge Activity: - (May not return to work until hand is addressed further and released by plastic surgery) Meaningful Use Info Meaningful Use Meaningful Use Diagnoses (Choose all that apply): None applicable Ischemic Stroke Statin Dosing Therapy Reference: STATIN DOSE THERAPY REFERENCE: * Patients > 75 years receive moderate or high dose statin therapy. * Patients 75 years or YOUNGER should receive HIGH intensity statin dose unless contraindicated. You will be required to document reason for non-treatment if statin daily dose does not meet guidelines. HIGH DOSE STATIN THERAPY DAILY Atorvastatin > than or = to 40 mg Rosuvastatin > than or = to 20 mg Amlodipine + Atorvastatin > than or = to 2.5/40 mg Ezetimibe + Simvastatin 10/80 mg Simvastatin 80mg Discharge Plan Admission Admit Date/Time: 03/05/24 23:49 Primary Reason for Your Visit: Right wound infection Attending Provider: Carey Farris Primary Care Provider: Care Physician,No Primary Consulting Providers: Tyron Lockhart; Arnulfo Cantu; Tyron De La Cruz Instructions Additional Instructions / Restrictions: Thank you for trusting us with your care today! Please take Tylenol (2 pills, 650 mg), ibuprofen (2 pills, 400 mg) every 6 hours as needed for pain and fever control. Please antibiotics as prescribed until course complete Please return to the emergency department if your symptoms change or worsen. PLASTIC SURGERY INSTRUCTIONS Twice daily Dial soap soaks for 10-20 minutes in warm soapy water, then re-dress with xeroform gauze and a dry dressing. Make sure to take your antibiotics and elevate your hand. Our hobbies and crafts sales representative will call you about surgery. Discharge Orders/Prescriptions Prescriptions: New oxycodone 5 mg Tablet 5 mg PO Q4H PRN PRN (Reason: Pain Score 4-5) 5 Days Qty: 30 0RF amlodipine 10 mg tablet 10 mg PO DAILY Qty: 30 1RF amoxicillin-pot clavulanate 875-125 mg tablet 1 tab PO BID Qty: 14 0RF doxycycline hyclate 100 mg tablet 100 mg PO BID Qty: 14 0RF Continued NK Referrals / Follow Up: Tyron Lockhart MD [Med Staff - Active Staff] - Within 1 Week Care Physician,No Primary [Primary Care Provider] - Disposition Disposition (needs filled in before D/C Order can be placed): Home, Self Care Charges/Coding Visit Charges Inpatient E&M: 37505 Disch Hosp >30min
[2024-03-07 12:14] VITALS: BP 178/115; PULSE 57; RESP 16; TEMP 36.6; O2SAT 98
--- NOTE | 2024-03-07 12:47 | NURSING ---
discharge inst given to pt. pt sent home with dressing supplies.
== END 2024-03-07 13:11 | disposition home or self-care (01) | DRG 316 ==
LOC: ED 23:20 → MS3 03-06 00:05
PROVIDERS: Surgery Plastic and Reconstructive Surgery; Admitting Provider Internal Medicine; Emergency Provider Emergency Medicine; Visit Provider Internal Medicine
DX: M86.8X4 Other osteomyelitis, hand (principal); E66.9 Obesity, unspecified; I10 Essential (primary) hypertension; F10.90 Alcohol use, unspecified, uncomplicated; F17.220 Nicotine dependence, chewing tobacco, uncomplicated; F41.9 Anxiety disorder, unspecified; F12.90 Cannabis use, unspecified, uncomplicated; Z68.35 Body mass index [BMI] 35.0-35.9, adult; L03.011 Cellulitis of right finger; R74.01 Elevation of levels of liver transaminase levels
CPT/HCPCS: 36415; 36569; 73140; 73220; 80048; 80053; 80202; 84443; 85025; 87070; 87075; 87077; 87186; 87205; 87640; 94668; 99284; 99406; A9575; J7030; J7040; A4216

== ENCOUNTER 2024-03-11 12:24 | Day surgery (SDC) | payer MEDICAID, SELFPAY ==
[2024-03-11] VITALS (7 sets, daily range): BP systolic 128–147; BP diastolic 89–95; PULSE 69–82; RESP 16; TEMP 36.4–36.7; O2SAT 97–100; BMI 34.7
--- NOTE | 2024-03-11 | BON_PTH ---
PATIENT: KI ANAND [place] [facility] [place] U#:[id number] AGE/SX: 33/M ROOM: RE03/11/[address]: Dr. Tyron Lockhart MD : 1990 BED: DIS: 03/11/2024 SPEC #: [id number] RECD: 03/11/24 18:17 STATUS: RAFAELA REKiersten #: [id number] CHRISTEL: 03/11/24 00:[address]: Tyron Lockhart DEPT: SURGICAL PATHOLOGY RECD BY: Ulices Retana ENTERED: 03/12/24 09:39 SP TYPE: Bone OTHR DR: No Primary Care Phys Tissues: A - Finger, NOS B - Finger, NOS Procedures: Decalcification bone/plaque Surgery Specimen Level IV HEADER OPERATION: Amputation right long finger at distal interphalangeal joint PRE-OP DIAGNOSIS: Osteomyelitis right long finger TISSUE SUBMITTED: A- Amputated right long finger, B- Middle phalanx right long finger MICROSCOPIC DIAGNOSIS A. Right long finger, amputation: Acute and chronic inflammation and granulation tissue reaction. Bone with acute and chronic osteomyelitis and reactive changes. B. Right middle phalanx long finger bone, biopsy: Scant minute fragments of bone, negative for acute osteomyelitis. AZALEA 03/14/2024 MICROSCOPIC DESCRIPTION Slides are reviewed. GROSS DESCRIPTION A. Received in fixative is one container labeled with the patient's name and designated Amputated right long finger. The specimen consists of a portion of finger measuring 2.5 x 2.5 x 1.2cm. Nail appears to be mildly atrophic. Focal area of ulceration is noted adjacent to the nail measuring 1.5 x 0.3cm. Also present in the container is a detached piece of skin measuring 2.5 x 1.5 x 0.5cm. Supervising Airplane Pilot sections are submitted in two cassettes after decalcification. B. Received in fixative is one container labeled with the patient's name and designated Middle phalanx right long finger. The specimen consists of scant minute fragments of bone measuring <0.1cm in greatest dimension. The entire specimen is submitted in one cassette after decalcification. 03/12/2024 TC:2 CPT:05631o2, [id number]
--- NOTE | 2024-03-11 12:53 | PCM.PRE.AN2 ---
ASA Classification* ASA Classification ASA Classification: 2 Assessment & Plan Anesthesia* Anesthesia Assessment Anesthesia Assessment: Discussed sedation and/or anesthesia options, risks, benefits, and alternatives with patient/parents/legal guardian/POA. Questions invited. The patient/parents/legal guardian/POA seems to understand and agrees to proceed with anesthesia plan. Reviewed the physical assessment, medical history, allergy history and patient home medications list prior to surgery/procedure/anesthetic and documented any changes. Performed airway and anesthesia risk assessments. Anesthesia Type Anesthesia Type: MAC (SEE WRITTEN PRE ANESTHESIA RECORD FOR FULL ASSESSMENT) Anesthesia Focused Assessment* Airway Assessment Mouth opens: >3 cm Mallampati Score: II Focused Labs Anesthesia Preop lab: CBC WBC 6.0 K/mm3 (4.4-11.0) 03/06/24 06:05 RBC 4.38 M/mm3 (4.6-6.2) L 03/06/24 06:05 Hgb 15.9 g/dL (13.0-16.5) 03/06/24 06:05 Hct 44.1 % (40-54) 03/06/24 06:05 Plt Count 243 K/mm3 (150-450) 03/06/24 06:05 CHEMISTRY Potassium 3.6 mmol/L (3.5-5.1) 03/06/24 06:05 Sodium 139 mmol/L (136-145) 03/06/24 06:05 BUN 12 mg/dL (7-18) 03/06/24 06:05 Creatinine 0.95 mg/dL (0.70-1.30) 03/06/24 06:05 Glucose 93 mg/dL (74-106) 03/06/24 06:05 TSH 3.520 uIU/mL (0.358-3.740) 03/06/24 06:05 COAG PT 12.8 SECONDS (11.7-14.9) 09/11/19 08:10 Pre-Assessment Diagnosis/Proposed Procedure Planned Operative Procedure(s): AMP R DISTAL FINGER (LONG) Anesthesia History Anesthesia History - well logging captain mud analysis: Anesthesia History - well logging captain mud analysis Hx Hospitalization Yes: 03/07/24 ANTIBIOTICS 03/10/24 16:07 FOR HAND Any Problems With Anesthesia Yes: PONV 03/10/24 16:07 Cholinesterase deficiency No 03/10/24 16:07 You/Your Family Experience No 03/10/24 16:07 fever (hyperthermia) with Relationship Recent Exposure to Contagious No 03/06/24 01:08 Disease Does patient have nerve No 03/10/24 16:07 stimulator Patient instructed to have device shut off --Does patient have Pacemaker or ICD? When Was Last Pacemaker Check QUESTION #4 FULL TEXT: You/Your Family Experience fever (hyperthermia) with Anesthesia Last Oral Intake Last Oral intake: Last Oral Intake NPO since Meds taken in AM with sips of water? Meds patient instructed to take am of surgery PONV PONV - well logging captain mud analysis: PONV - well logging captain mud analysis Female No 03/10/24 16:07 HX of Motion Sickness No 03/10/24 16:07 HX of N/V After Surgery Yes 03/10/24 16:07 Non-Smoker Yes 03/10/24 16:07 Duration of Surgery greater Yes 03/10/24 16:07 than 60 minutes Number of Risk Factors 3 03/10/24 16:07 PONV Score Moderate Risk 03/10/24 16:07 Height & Weight Height & Weight: Anesthesia: Height & Weight Height 5 ft 11 in 03/06/24 10:21 Respiratory Assessment Respiratory Assessment - well logging captain mud analysis: Respiratory Tract Infection Hx - well logging captain mud analysis Hx Respiratory Tract Infection No 03/10/24 16:07 STOP Sleep Apnea STOP Sleep Apnea - well logging captain mud analysis: STOP Sleep Apnea - well logging captain mud analysis Hx Hypertension Yes: PT TOOK HIMSELF OFF MED 03/10/24 16:07 Hx Sleep Apnea No 03/10/24 16:07 CPAP BIPAP Do you snore loudly (louder No 03/10/24 16:07 than talking or can be heard Do you often feel tired/ No 03/10/24 16:07 fatigued/ sleepy during daytime? Has anyone observed you stop No 03/10/24 16:07 breathing during sleep? STOP Results Negative 03/10/24 16:07 QUESTION #5 FULL TEXT : Do you snore loudly (louder than talking or can be heard through closed doors)? 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 Specify any problems Hx of Preganancy in last 3 N/A 03/10/24 16:07 Months Nurse Filling Out Transfusion NBUCHER 03/10/24 16:07 & Questions: Date: 03/10/24 03/10/24 16:07 Time: 16:09 03/10/24 16:07 Patient unable to answer at this time (ie. confused, unrespo /Reproduction History /Reproductive History - well logging captain mud analysis: /Reproductive Hx- well logging captain mud analysis Hx Now No 03/10/24 16:07 Gestational Age (in weeks): EDC: Hx Hx Para Hx Section SAB No 03/10/24 16:07 Active Medications Active Medications: Current Medications Generic Name Dose Route Start Last Admin Trade Name Freq PRN Reason Stop Dose Admin Cefazolin Sodium 2 gm/ N/A 20 mls @ 400 mls/hr 03/11/24 14:00 IV 03/11/24 14:02 PREOP ONE PFSH Medical History Alcohol use Marijuana use Open wound Restless legs Hypertension History of pericarditis excision of teratoma (~2005) Teratoma Home Medications ?Medication ?Instructions ?Recorded ?Last Taken ?Type amlodipine 10 mg tablet 10 mg PO DAILY #30 tabs 03/07/24 Unknown Rx amoxicillin 875 mg-potassium 1 tab PO BID #14 tabs 03/07/24 Unknown Rx clavulanate 125 mg tablet doxycycline hyclate 100 mg tablet 100 mg PO BID #14 tabs 03/07/24 Unknown Rx oxycodone 5 mg tablet 5 mg PO Q4H PRN PRN Pain Score 4-5 03/07/24 Unknown Rx 5 days #30 tabs Allergy/AdvReac Type Severity Reaction Status Date / Time No Known Allergies Allergy Verified 03/10/24 16:06 Family History Aunt Breast cancer Grandmother No problems noted. Mother No problems noted. Grandfather Heart disease Surgical History History of biopsy Social History Smoking Status: Never smoker substance use type: marijuana Review of Systems (Anesthesia) ROS Narrative System reviewed and no additional complaints, except as documented.
--- NOTE | 2024-03-11 14:02 | HP.PCM.SX_ITS ---
HPI - General HPI Narrative KI ANAND, is a 33 M who presents with right long finger distal phalanx osteomyelitis. MRI demonstrated diffuse osteomyelitis. Current Encounter (DATE OF SURGERY H&P UPDATE): I saw and examined the patient this morning in pre-operative holding. We discussed risks and benefits of today's surgery and they would like to proceed. NO CHANGE in health history since last seen and evaluated. Ready to proceed with surgery. [facility] Medical History Alcohol use Marijuana use Open wound Restless legs Hypertension History of pericarditis excision of teratoma (~2005) Teratoma Home Medications ?Medication ?Instructions ?Recorded ?Last Taken ?Type amlodipine 10 mg tablet 10 mg PO DAILY #30 tabs 03/07/24 Unknown Rx amoxicillin 875 mg-potassium 1 tab PO BID #14 tabs 03/07/24 Unknown Rx clavulanate 125 mg tablet doxycycline hyclate 100 mg tablet 100 mg PO BID #14 tabs 03/07/24 Unknown Rx oxycodone 5 mg tablet 5 mg PO Q4H PRN PRN Pain Score 4-5 03/07/24 Unknown Rx 5 days #30 tabs Allergy/AdvReac Type Severity Reaction Status Date / Time No Known Allergies Allergy Verified 03/11/24 13:16 Family History Aunt Breast cancer Grandmother No problems noted. Mother No problems noted. Grandfather Heart disease Surgical History History of biopsy Social History Smoking Status: Never smoker substance use type: marijuana Vital Signs Vital Signs Vital Signs: 03/11/24 13:22 03/11/24 13:22 Temperature 97.5 F L Temperature Source Temporal Pulse Rate 82 Respiratory Rate 16 Respiratory Pattern Normal Blood Pressure 147/95 H Blood Pressure Mean 112 Blood Pressure Source Monitor Blood Pressure Position Semi-Fowlers Blood Pressure Location Right Arm Pulse Ox 99 Oxygen Delivery Method Room Air Weight Weight: 249 lb 5.485 oz Body Mass Index (BMI) 34.7 Physical Exam Narrative RUE: Dressings removed. Swelling/cellulitis on right long finger (RLF) tip has improved greatly. No drainage. No pain along flexor sheath or in the palm. Const alert and oriented x3 Assessment & Plan Assessment/Plan (1) Osteomyelitis: QUALIFIERS: Osteomyelitis type: unspecified type Osteomyelitis location: hand Laterality: right Qualified Code(s): M86.9 - Osteomyelitis, unspecified PLAN: I talked the patient extensively about the risks of surgery, including bleeding, failure to clear infection, damage to surrounding structures, surgical site dehiscence and wound formation, need for wound care, need for repeat operations, and failure to obtain the desired result. We talked about painful neuroma risk, and risk of residual nail growth. The benefits and alternatives of this surgery were also discussed. We discussed treatment of the osteomyelitis with long-term antibiotics, but given the extent of the osteomyelitis (entire distal phalanx), we talked about how this would be a challenge. He wants to get back to work as soon as possible and is not interested in attempting salvage. INTERVAL H&P PLAN, DATE OF SURGERY: We will proceed with surgery today. Above was discussed again today. All of their questions were answered, and Mr. Anand is electing to undergo amputation of the osteomyelitic bone today. Plan for distal interphalangeal joint (DIP)-level amputation of the RLF in the operating room today with biopsy of the distal portion of the middle phalanx.
[2024-03-11] MEDS: Cefazolin 2 GM in Syringe IV (14:25)
[2024-03-11] MEDS: Bupivacaine 0.25% 30 ML Vial (15:17)
--- NOTE | 2024-03-11 15:28 | PCM.POST.ANE ---
Anesthesia: Postop Eval I Current Vital Signs Temperature: 98 F Pulse Rate: 81 Blood Pressure: 138/92 Respiratory Rate: 16 Pulse Ox: 97 Oxygen Delivery Method: Room Air Assessment Airway patent: Yes Spontaneous unlabored respirations: Yes Mental status: Awake and Calm nausea: No Vomiting: No Anesthesia Complication: No Fluid Hydration Crystalloid volume administer (ml): 1,000 Total IV fluid infused: 1,000 Progress Note Anesthesia document: Postop Eval 1 completed: Yes
--- NOTE | 2024-03-11 15:39 | PCM.OPRPT ---
Operative Report (Standard) Operative Information Surgery/Procedure Performed: Right long finger amputation at the distal interphalangeal joint level CPT: 05056 Surgeon: Tyron Lockhart Date of Procedure: 03/11/24 Procedure Start Time: 14:45 Procedure Stop Time: 15:13 Pre-Operative Diagnosis: Right long finger osteomyelitis at the distal phalanx Post-Operative Diagnosis: same Select all DRAINS/GRAFTS/IMPLANTS that apply: None Type of Anesthesia: General/Supplemental (with 6 cc of 0.25% marcaine for a digital block ) Estimated Blood Loss: minimal Fluids Replaced: 800 cc NS Specimen collected: Yes Description of specimen(s) removed: amputated finger for path, and bone biopsy of the middle phalanx for path and culture Description of surgery: Indications: Patient is a 33-year-old male who was bit by dog in the right index finger nail bed and developed diffuse osteomyelitis of the right long finger distal phalanx. He had an abscess underneath the nail and also demonstrated the osteomyelitis on MRI imaging. After thorough discussion of risk benefits and alternatives, he elected for amputation of the distal phalanx (distal interphalangeal joint level amputation). Patient did not tolerate removal of the nail plate well at bedside (anxiety) and subsequently requested more anesthesia. Procedure details: Patient was correct identified in preoperative holding and the right index finger was marked and correctly identified. He was taken back to the operating room he was administered general anesthesia. He was prepped and draped in sterile fashion and all proper timeouts were performed. A turnicot was applied with care taken to remove at the end of the case. The dorsum of the fingertip as well as the distal phalanx bone was removed in 1 piece (nail plate and bone together) and sent to pathology for gross identification. This created a volar advancement flap. The digital neurovascular bundles were identified and traction neurectomies were performed bilaterally. The middle phalanx cartilaginous head was rongeured back. The bone was then biopsied for pathology to rule out osteomyelitis and also for cultures to rule out osteomyelitis. The wound was then irrigated with 450 cc of Irrisept. Hemostasis was then obtained once the turnicot was removed (bipolar electrocautery). The advancement flap was trimmed to fit and advanced over the bone and sutured to the dorsal skin with loose 3-0 interrupted chromic gut sutures. Xeroform, AlumaFoam, Harry and Coban were applied loosely. The patient tolerated the procedure well and was awakened and taken to PACU in stable condition after a 6 cc 0.25% Marcaine block was applied before he was awakened. Surgical Findings: Healthy appearing middle phalanx bone Packaging Specialist optometrist assistant: No Complications Complications: No Admit VTE Documentation VTE Mechan Device Prophylaxis: SCD's
--- NOTE | 2024-03-11 15:40 | POSTOPAN2_ITS ---
Anesthesia Postop Eval I Sum Postop Eval Completion status Anesthesia document: Postop Eval 1 completed: Yes Anesthesia Postop Eval I Summary Anesthesia Postop Eval I Summary: Anesthesia Postop Eval I: Assessment Summary Airway patent Yes 03/11/24 15:29 SENIOR MANUFACTURING TEST ENGINEER.[email or web address] Spontaneous unlabored Yes 03/11/24 15:29 SENIOR MANUFACTURING TEST ENGINEER.[email or web address] respirations Mental status Awake,Calm 03/11/24 15:29 SENIOR MANUFACTURING TEST [email or web address] nausea No 03/11/24 15:29 SENIOR MANUFACTURING TEST ENGINEER.[email or web address] Vomiting No 03/11/24 15:29 SENIOR MANUFACTURING TEST ENGINEER.[email or web address] Anesthesia Postop Eval I: Fluid Summary Crystalloid volume administer 1,000 03/11/24 15:29 SENIOR MANUFACTURING TEST [email or web address] (ml) Colloids volume administered ( ml) Blood Product volume administered (ml) Total IV fluid infused 1,000 03/11/24 15:29 SENIOR MANUFACTURING TEST ENGINEER.[email or web address] Anesthesia Postop Eval I: Summary Notes Anesthesia Complication No 03/11/24 15:29 SENIOR MANUFACTURING TEST [email or web address].[email or web address] Anesthesia Complication Comment: Post-operative progress note Anesthesia: Postop Eval II Evaluation Mental status: Awake Pain Level: 0 nausea: No Vomiting: No
--- NOTE | 2024-03-11 15:40 | PCM.POSTANE2 ---
Anesthesia Postop Eval I Sum Postop Eval Completion status Anesthesia document: Postop Eval 1 completed: Yes Anesthesia Postop Eval I Summary Anesthesia Postop Eval I Summary: Anesthesia Postop Eval I: Assessment Summary Airway patent Yes 03/11/24 15:29 MACHINE CHAIN [email or web address] Spontaneous unlabored Yes 03/11/24 15:29 MACHINE CHAIN [email or web address] respirations Mental status Awake,Calm 03/11/24 15:29 MACHINE CHAIN [email or web address] nausea No 03/11/24 15:29 MACHINE CHAIN [email or web address] Vomiting No 03/11/24 15:29 MACHINE CHAIN [email or web address] Anesthesia Postop Eval I: Fluid Summary Crystalloid volume administer 1,000 03/11/24 15:29 MACHINE CHAIN [email or web address] (ml) Colloids volume administered ( ml) Blood Product volume administered (ml) Total IV fluid infused 1,000 03/11/24 15:29 MACHINE CHAIN [email or web address] Anesthesia Postop Eval I: Summary Notes Anesthesia Complication No 03/11/24 15:29 MACHINE CHAIN [email or web address] Anesthesia Complication Comment: Post-operative progress note Anesthesia: Postop Eval II Evaluation Mental status: Awake Pain Level: 0 nausea: No Vomiting: No
== END 2024-03-11 16:04 | disposition home or self-care (01) ==
LOC: SDC 12:27 → AC 12:37
PROVIDERS: Referring Provider Surgery Plastic and Reconstructive Surgery; Visit Provider Surgery Plastic and Reconstructive Surgery
PROC: (CPT 26952; principal; 2024-03-11 13:45)
DX: M86.9 Osteomyelitis, unspecified (principal); I10 Essential (primary) hypertension; F17.200 Nicotine dependence, unspecified, uncomplicated; E66.9 Obesity, unspecified; Z68.34 Body mass index [BMI] 34.0-34.9, adult; Z79.899 Other long term (current) drug therapy
CPT/HCPCS: 26952; 20240; 01830; 87015; 87070; 87075; 87102; 87116; 87205; 87206; 88305; 88311; J2405